=== PATIENT | female | born 1985 | race Two or more races ===

== ENCOUNTER → 2016-11-13 | Outpatient (CLI) | payer OTHER ==
[2016-11-13 12:13] LABS: CH 32.6; CHCM 34.3; HDW 2.92; HGB 11.4 gm/dL (11.4-16.0); MCHC 33.4 g/dL (31.0-37.0); MCV 95.8 fL (80.0-100.0); Mean Platelet Volume 8.8; RBC 3.55 m/uL (3.80-5.40); RDW 14.3 % (11.5-15.5); WBC 5.4 k/uL (3.8-10.6)
[2016-11-13 12:47] LABS: Non-African American GFR(MDRD) >60 (>60 ml/min/1.73 sqM)
[2016-11-13 13:35] LABS: Hepatitis B Surface Ag Index 0.05
[2016-11-13 15:38] LABS: Treponemal Ab Non-Reactive (Non-Reactive)
[2016-11-14 10:12] LABS: HIV-1/HIV-2 Ab Screen NONREAC (NON REAC)
== END | disposition home or self-care (01) ==
LOC: LABWHC1 10:47
PROVIDERS: ATTEND Obstetrics & Gynecology
DX: Z34.82 Encounter for supervision of other normal pregnancy, second trimester (principal); Z3A.00 Weeks of gestation of pregnancy not specified
CPT/HCPCS: 36415; 82565; 82950; 85027; 86762; 86777; 86778; 86780; 86850; 86870; 86880; 86886; 86900; 86901; 87340; 87389

== ENCOUNTER → 2016-12-17 | Outpatient (CLI) | payer OTHER | END | disposition home or self-care (01) | LOC: LABWHC1 15:36 | PROVIDERS: ATTEND Obstetrics & Gynecology | DX: Z34.93 Encounter for supervision of normal pregnancy, unspecified, third trimester (principal); Z3A.00 Weeks of gestation of pregnancy not specified | CPT/HCPCS: 86850 ==

== ENCOUNTER → 2017-01-23 | Outpatient (CLI) | payer OTHER ==
--- NOTE | 2017-01-23 11:45 | US ---
EXAMINATION TYPE: US OB anatomy transabd third trimester DATE OF EXAM: 01/23/2017 10:03 AM COMPARISON: NONE HISTORY: LGA TECHNIQUE: Transabdominal (TA) EXAM MEASUREMENTS: GESTATIONAL AGE / DATING Physician Established: (34 weeks/2 days) EDC: 03/04/17 Dates by LMP: not known Dates by First Scan: not available Dates by Current Scan for: (34 weeks/4 days) EDC: 03/02/17 SURVEY IUP: Single PLACENTA: Posterior/fundal PREVIA: No previa TIFFANIE: 12.0 cm Normal CERVICAL LENGTH (transabdominal: norm > 3.0cm): 3.3 cm BIOMETRY PRESENTATION: Vertex BPD: 8.6 cm 34 weeks / 5 days HC: 31.2 cm 35 weeks / 2 days AC: 30.4 cm 34 weeks / 2 days FL: 6.6 cm 33 weeks / 6 days ESTIMATED WEIGHT IN GRAMS: 2405 grams ESTIMATED WEIGHT IN LBS/OZS: 5 lbs. 5 oz. WEIGHT PERCENTAGE BASED ON ESTABLISHED DATE: 45 % HC/AC: 1.0 FL/AC: 21.7 HEART RATE: 129 bpm ANATOMY SEEN (within normal limits): Stomach Situs Nose / Lips Diaphragm Kidneys (bilateral) Bladder Cord Insert Three Vessel Cord Longitudinal Spine Transverse Spine *) Midline Falx Cavus Septi Pellucidi ANATOMY NOT SEEN: Lateral Vent (< 1 cm) cm * Cisterna Magna (< 1.1 cm) cm * Nuchal Fold (< 0.6 cm) cm * Cerebellum (varies with age) cm Choroid Plexus (bilateral Four Chamber Heart Outflow tracts: LVOT/RVOT Arms (bilateral) Legs (bilateral) Single live intrauterine gestation is present. Normal cephalad presentation to fetus is currently see n. There is no ultrasound evidence for placenta previa. Amniotic fluid index is within normal limits. biometry measurements are congruent and felt within normal limits. Detailed anatomical survey i s suboptimal due to advanced age. Majority of structures are suboptimally evaluated as detailed above on still images and during real-time scanning. nose and lips are felt within normal limi ts during real-time scanning less well documented on still images saved. IMPRESSION: As above
== END | disposition home or self-care (01) ==
LOC: RADUSWWP 09:20
PROVIDERS: ATTEND Obstetrics & Gynecology
DX: O36.63X0 Maternal care for excessive fetal growth, third trimester, not applicable or unspecified (principal); Z3A.34 34 weeks gestation of pregnancy
CPT/HCPCS: 76811

== ENCOUNTER 2017-03-06 04:38 | Inpatient (IN) | payer OTHER ==
[2017-03-06] MEDS ORDERED: LIDOCAINE 1% (PF) 10 MG/ML (30 ML SDV) SQ PRN (06:01)
[2017-03-06] MEDS ORDERED: CARBOPROST TROMETHAMINE 250 MCG/ML 1 ML AMP IM PRN (06:01)
[2017-03-06] MEDS ORDERED: TERBUTALINE 1 MG/ML VIAL SQ PRN (06:01)
[2017-03-06] MEDS ORDERED: OXYTOCIN 10 UNIT/ML 1 ML VIAL IM PRN (06:01)
[2017-03-06] MEDS ORDERED: METHYLERGONOVINE 0.2 MG/ML 1 ML AMP IM PRN (06:01)
[2017-03-06] MEDS ORDERED: OXYTOCIN 20 UNITS/1000 ML NS 1,000 ML IV SCH ×2 (06:15→11:45)
[2017-03-06 06:20] VITALS: BMI 24.0
[2017-03-06] MEDS: LACTATED RINGERS 1,000 ML IV SCH ×2 (06:30→15:33)
[2017-03-06] MEDS: BUTORPHANOL 1 MG/ML 1 ML VIAL IV PRN ×2 (06:39→10:02)
--- NOTE | 2017-03-06 09:35 | P.HPOB ---
History of Present Illness H&P Date: 03/06/17 Chief Complaint: Labor 31-year-old presents at 41 weeks in labor. Her cervix is 4 centers dilated, 90% effaced, and -1 station. She is adan every 2-4 minutes. heart tones 130-135 with moderate variability and reactive. Review of Systems All systems: negative Constitutional: Denies chills, Denies fever Eyes: denies blurred vision, denies pain Ears, nose, mouth and throat: Denies headache, Denies sore throat Cardiovascular: Denies chest pain, Denies shortness of breath Respiratory: Denies cough Gastrointestinal: Denies abdominal pain, Denies diarrhea, Denies nausea, Denies vomiting Genitourinary: Denies dysuria, Denies hematuria Musculoskeletal: Denies myalgias Integumentary: Denies pruritus, Denies rash Neurological: Denies numbness, Denies weakness Psychiatric: Denies anxiety, Denies depression Endocrine: Denies fatigue, Denies weight change Past Medical History Past Medical History: No Reported History Additional Past Medical History / Comment(s): Obstetric history: She's had 2 previous vaginal deliveries. This is her third and she's had care with me since 18 weeks gestation. Her care is been uncomplicated up to this point. And TIFFANIE done earlier this week showed the fluid to be 12 cm an NST had been reactive. History of Any Multi-Drug Resistant Organisms: None Reported Past Surgical History: No Surgical Hx Reported Past Psychological History: No Psychological Hx Reported Smoking Status: Never smoker - Past Family History Father Family Medical History: No Reported History Medications and Allergies Home Medications Medication Instructions Recorded Confirmed Type Pnv with Ca,No.72/Iron/FA 1 each PO DAILY 03/06/17 03/06/17 History [ Plus Tablet] Allergies Allergy/AdvReac Type Severity Reaction Status Date / Time No Known Allergies Allergy Verified 03/06/17 04:58 Exam Osteopathic Statement: *. No significant issues noted on an osteopathic structural exam other than those noted in the History and Physical/Consult. - Vital Signs Vital signs: Vital Signs Temp Pulse Resp BP 03/06/17 06:10 97.1 F L 80 18 115/70 03/06/17 05:19 96.8 F L 80 19 121/78 Intake and Output 03/05/17 03/06/17 03/06/17 22:59 06:59 14:59 Other: Weight 71.668 kg Heart: Regular rate and rhythm Lungs: Clear to auscultation bilaterally Abdomen: Soft, nontender Extremities: Negative Homans sign Assessment and Plan (1) Normal labor Status: Acute Plan: 1. Expectant management 2. Anticipate normal vaginal delivery
[2017-03-06] MEDS ORDERED: diphenhydrAMINE 50 MG/ML 1 ML VIAL IVP PRN ×2 (11:32)
[2017-03-06] MEDS ORDERED: ACETAMINOPHEN TAB 325 MG TAB PO PRN (11:32)
[2017-03-06] MEDS ORDERED: diphenhydrAMINE 25 MG CAP PO PRN (11:32)
[2017-03-06] MEDS ORDERED: BENZOCAINE/MENTHOL SPRAY 1 GM/SPRAY AEROSOL TOPICAL PRN (11:32)
[2017-03-06] MEDS ORDERED: WITCH HAZEL 1 EACH MED..PAD TOPICAL PRN (11:32)
[2017-03-06] MEDS ORDERED: SIMETHICONE 80 MG CHEWABLE PO PRN (11:32)
[2017-03-06] MEDS ORDERED: diphenhydrAMINE 50 MG CAP PO PRN (11:32)
[2017-03-06] MEDS ORDERED: Acetaminophen-Codeine 300-30mg TAB PO PRN (11:32)
[2017-03-06] MEDS ORDERED: HYDROCORTISONE 2.5% RECTAL CREAM 30 GM TUBE RECTAL PRN (11:32)
[2017-03-06] MEDS ORDERED: LANOLIN CREAM 5 GM TUBE TOPICAL PRN (11:32)
[2017-03-06] MEDS ORDERED: ZOLPIDEM 5 MG TAB PO PRN (11:32)
[2017-03-06] MEDS: IBUPROFEN 600 MG TAB PO PRN ×2 (13:40→20:48)
[2017-03-06] MEDS: SENNOSIDES-DOCUSATE SODIUM 1 EACH TAB PO SCH (20:23)
[2017-03-06 20:56] VITALS: RESP 16
[2017-03-07] MEDS: LACTATED RINGERS 1,000 ML IV SCH (01:36)
--- NOTE | 2017-03-07 07:45 | P.PROBDLV ---
Vaginal Delivery Note - . Vaginal Delivery Note: 31-year-old presented at 41 weeks in active labor. Her cervix was 4 cm dilated, 90% effaced, -1 station. She is adan every 2-4 minutes. heart tones 130-135 with moderate variability and reactive. Amniotomy was performed at 9:17 AM and clear fluid noted. At this time she was 5 cm dilated. She progressed to complete by 10:43 AM. Pushed, and delivered a viable male infant over intact perineum at 11:04 AM. Head delivered OA, anterior shoulder which was the left shoulder was delivered with gentle downward traction followed by posterior shoulder and rest of body. Nose and mouth bulb suctioned , cord clamped and cut, placed mother's abdomen. Apgars 9, 9, weight 7 lbs. 9 oz. Placenta delivered spontaneously, intact with three-vessel cord at 11:06 AM. Vagina, cervix, and perineum were inspected. No lacerations noted. Estimated blood loss 150 mL. Mother and baby in stable condition.
--- NOTE | 2017-03-07 07:46 | P.PNOBGVD ---
Subjective - Subjective Principal diagnosis: Status post total vaginal delivery post day #1 Interval history: Seen and examined. Denies nausea, vomiting, chest pain, shortness of breath or calf pain. Patient reports: Reports appetite normal, Reports voiding normally, Reports pain well controlled, Reports ambulating normally : doing well Objective - Latest Vital Signs Latest vital signs: Vital Signs Temp Pulse Resp BP 03/07/17 00:00 98.2 F 77 16 107/61 03/06/17 20:00 98.6 F 69 16 101/59 03/06/17 15:38 97.8 F 61 18 117/73 03/06/17 13:15 74 18 100/59 03/06/17 12:45 98.1 F 71 18 106/63 03/06/17 12:15 71 18 113/63 03/06/17 12:00 71 18 116/55 03/06/17 11:45 75 18 100/51 03/06/17 11:30 75 18 119/67 03/06/17 11:15 67 18 110/62 Intake and Output 03/06/17 03/07/17 03/07/17 22:59 06:59 14:59 Other: # Voids 1 - Exam Lungs: bilateral: normal Chest: Normal S1, Normal S2 Extremities: Present: normal Abdomen: Present: normal appearance, soft Uterus: Present: normal, firm Assessment and Plan (1) Normal labor Current Visit: Yes Status: Resolved Code(s): O80 - ENCOUNTER FOR FULL-TERM UNCOMPLICATED DELIVERY; Z37.9 - OUTCOME OF DELIVERY, UNSPECIFIED SNOMED Code(s ): 55036702 (2) Normal vaginal delivery Narrative/Plan: 1. Continue care Current Visit: Yes Status: Acute Code(s): O80 - ENCOUNTER FOR FULL-TERM UNCOMPLICATED DELIVERY SNOMED Code(s): 66092786
[2017-03-07 08:46] VITALS: BP 104/65; PULSE 91; TEMP 99
[2017-03-07] MEDS: SENNOSIDES-DOCUSATE SODIUM 1 EACH TAB PO SCH (08:50)
--- NOTE | 2017-03-07 12:47 | P.DS ---
Providers Date of admission: 03/06/17 05:52 Expected date of discharge: 03/07/17 Attending physician: Francia Buenrostro Primary care physician: Vianey Cuellar - Discharge Diagnosis(es) (1) Normal labor Current Visit: Yes Status: Resolved (2) Normal vaginal delivery Current Visit: Yes Status: Acute Hospital Course: PAtient presented in active labor. She underwent a normal vaginal delivery. Her pp course is uncomplicated. Denies N/V, F/C, CP, SOB, calf pain. She will be discharged home PPD #1 in stable condition to follow up with me in 6 weeks. Plan - Discharge Summary Discharge Medication List Pnv with Ca,No.72/Iron/FA [ Plus Tablet] 1 tab PO DAILY 03/06/17 [ History] Follow up Appointment(s)/Referral(s): Francia Buenrostro DO [Doctor of Osteopathic Medicine] - 6 Weeks Discharge Disposition: HOME SELF-CARE
[2017-03-07] MEDS: IBUPROFEN 600 MG TAB PO PRN (14:52)
== END 2017-03-07 15:30 | disposition home or self-care (01) | DRG 775 ==
LOC: FBPOP 04:38 → 4FBP 05:52
PROVIDERS: ADMIT Obstetrics & Gynecology; ATTEND Obstetrics & Gynecology
PROC: 10E0XZZ Delivery of Products of Conception, External Approach (ICD-10-PCS; principal; 2017-03-06)
PROC: 10907ZC Drainage of Amniotic Fluid, Therapeutic from Products of Conception, Via Natural or Artificial Opening (ICD-10-PCS; 2017-03-06)
DX: O80 Encounter for full-term uncomplicated delivery (principal); Z37.0 Single live birth; Z3A.41 41 weeks gestation of pregnancy
CPT/HCPCS: 59025; 88307; 99213

== ENCOUNTER 2017-04-08 02:06 | Emergency (ER) | payer OTHER ==
[2017-04-08 02:15] VITALS: RESP 16
[2017-04-08] MEDS ORDERED: RX INFO: IV CONTRAST WAS GIVEN 1 EACH MISC MISCELLANE PRN (02:31)
[2017-04-08] MEDS ORDERED: ONDANSETRON 4 MG/2 ML VIAL IVP STA (02:31)
[2017-04-08] MEDS ORDERED: DICYCLOMINE 10 MG/ML 2 ML AMP IM STA (02:31)
[2017-04-08 03:32] LABS: ALT 34 U/L (9-52); AST 34 U/L (14-36); Alkaline Phosphatase 73 U/L (38-126); Amylase 70 U/L (30-110); Anion Gap 11 mmol/L; Appearance,Urine Clear (Clear); Bacteria,Urine Rare /hpf; Bilirubin,Urine Negative (Negative); Blood Urea Nitrogen 10 mg/dL (7-17); Calcium 9.5 mg/dL (8.4-10.2); Carbon Dioxide 27 mmol/L (22-30); Chloride 105 mmol/L (98-107); Glucose 92 mg/dL (74-99); Glucose,Urine (UA) Negative (Negative); Ketones,Urine Negative (Negative); Leukocyte Esterase,Urine Small (Negative); Nitrite,Urine Negative (Negative); Non-African American GFR(MDRD) >60 (>60 ml/min/1.73 sqM); PH, Urine 5.5 (5.0-8.0); Particle Count 528; Potassium 4.4 mmol/L (3.5-5.1); Protein,Urine Negative (Negative); RBC,Urine <1 /hpf (0-5); Sodium 143 mmol/L (137-145); Specific Gravity,Urine 1.002 (1.001-1.035); Squamous Epithelial Cell,Urine 1 /hpf (0-4); Total Bilirubin 0.3 mg/dL (0.2-1.3); Total Protein 7.5 g/dL (6.3-8.2); UA Billing (MACRO vs. MICRO) MICRO; Urobilinogen,Urine <2.0 mg/dL (<2.0); WBC,Urine 2 /hpf (0-5)
[2017-04-08 03:37] LABS: Basophils % (A) 1 %; CH 32.5; Eosinophils # (A) 0.1 k/uL (0-0.7); Eosinophils % (A) 2 %; HCT 37.2 % (34.0-46.0); HDW 2.97; HGB 13.2 gm/dL (11.4-16.0); Luc # (Auto) 0.17; Luc % (Auto) 4; Lymphocytes # (A) 1.2 k/uL (1.0-4.8); Lymphocytes % (A) 33 %; MCH 32.1 pg (25.0-35.0); MCHC 35.4 g/dL (31.0-37.0); MCV 90.7 fL (80.0-100.0); Mean Platelet Volume 7.5; Monocytes # (A) 0.2 k/uL (0-1.0); Monocytes % (A) 4 %; Neutrophils # (A) 2.1 k/uL (1.3-7.7); Neutrophils % (A) 57 %; RDW 12.3 % (11.5-15.5); WBC 3.8 k/uL (3.8-10.6); WBC (Perox) 3.81
--- NOTE | 2017-04-08 03:37 | ED ---
Abdominal Pain HPI - General Chief Complaint: Abdominal Pain Stated Complaint: Abdominal Pain Time Seen by Provider: 04/08/17 02:19 Source: patient, RN notes reviewed Mode of arrival: ambulatory Limitations: no limitations - History of Present Illness Initial Comments: 31-year-old female presents to the emergency department with a chief complaint of right upper quadrant. Bowel pain. Patient had a vaginal delivery of a child one month ago. Patient states she's having this pain in the right upper quadrant. Patient states the pain comes and goes. Patient states the pain is moderate. Patient states that nothing seems to make it better or worse. Patient denies any nausea vomiting this. They were concerned due to the patient 's pains without that they should be seen. Patient also does suffer from chronic neck pain that has been getting worse over the last month or so. She states is most likely due to carrying the baby in looking at the baby, but she wanted to make sure that her neck was okay as well. Patient states that she is not currently having any other symptoms at this time. Patient denies any recent fever, chills, shortness of breath, chest pain, back pain, nausea vomiting, numbness or tingling, dysuria or hematuria, constipation or diarrhea, headaches or visual changes, or any other current symptoms. - Related Data Home Medications Medication Instructions Recorded Confirmed Pnv,Calcium 72/Iron/Folic Acid 1 tab PO DAILY 03/06/17 03/06/17 [ Plus Tablet] Allergies Allergy/AdvReac Type Severity Reaction Status Date / Time No Known Allergies Allergy Verified 04/08/17 02:15 Review of Systems ROS Statement: Those systems with pertinent positive or pertinent negative responses have been documented in the HPI. ROS Other: All systems not noted in ROS Statement are negative. Past Medical History Past Medical History: No Reported History Additional Past Medical History / Comment(s): She's had 3 previous vaginal deliveries History of Any Multi-Drug Resistant Organisms: None Reported Past Surgical History: No Surgical Hx Reported Past Psychological History: No Psychological Hx Reported Smoking Status: Never smoker Past Alcohol Use History: None Reported Past Drug Use History: None Reported - Past Family History Father Family Medical History: No Reported History General Exam - General Exam Comments Initial Comments: General: The patient is awake and alert, in no distress, and does not appear acutely ill. Eye: Pupils are equal, round and reactive to light, extra-ocular movements are intact; there is normal conjunctiva bilaterally. No signs of icterus. Ears, nose, mouth and throat: There are moist mucous membranes and no oral lesions. Neck: The neck is supple, there is no tenderness. Cardiovascular: There is a regular rate and rhythm. No murmur, rub or gallop is appreciated. Respiratory: Lungs are clear to auscultation, respirations are non-labored, breath sounds are equal. No wheezes, stridor, rales, or rhonchi. Gastrointestinal: Soft, non-distended, non-tender abdomen without masses or organomegaly noted. There is no rebound or guarding present. No CVA tenderness. Bowel sounds are unremarkable. Back: There is no tenderness to palpation in the midline. There is no obvious deformity. No rashes noted. Musculoskeletal: Normal ROM, no tenderness, There is no pedal edema. There is no calf tenderness or swelling. Sensation intact. Pulses equal bilaterally 2+. Neurological: CN II-XII intact, There are no obvious motor or sensory deficits. Coordination appears grossly intact. Speech is normal. Skin: Skin is warm and dry and no rashes or lesions are noted. Psychiatric: Cooperative, appropriate mood & affect, normal judgment. Limitations: no limitations Course Vital Signs 04/08/17 02:10 Temperature 99.0 F Pulse Rate 82 Respiratory 16 Rate Blood Pressure 131/81 O2 Sat by Pulse 99 Oximetry Medical Decision Making - Medical Decision Making 31-year-old female presents emergency Department chief complaint of right upper quadrant abdominal pain. At this time patient's CAT scan is reviewed that is showing a colitis. At this time we discussed that she should take Tylenol for her pain. We discussed follow-up to GI. We discussed that her stool cultures will help us follow up on any bacterial infection in that we can follow-up on the results and she should call us. We discussed return parameters all patient' s questions. She stated that she understood. She is feeling much better. This time she'll just discharged home. - Lab Data Result diagrams: 04/08/17 03:00 04/08/17 03:00 Lab Results 04/08/17 04/08/17 04/08/17 Range/Units 03:00 03:00 03:00 WBC 3.8 (3.8-10.6) k/uL RBC 4.10 (3.80-5.40) m/uL Hgb 13.2 (11.4-16.0) gm/dL Hct 37.2 (34.0-46.0) % MCV 90.7 (80.0-100.0) fL MCH 32.1 (25.0-35.0) pg MCHC 35.4 (31.0-37.0) g/dL RDW 12.3 (11.5-15.5) % Plt Count 198 (150-450) k/uL Neutrophils % 57 % Lymphocytes % 33 % Monocytes % 4 % Eosinophils % 2 % Basophils % 1 % Neutrophils # 2.1 (1.3-7.7) k/uL Lymphocytes # 1.2 (1.0-4.8) k/uL Monocytes # 0.2 (0-1.0) k/uL Eosinophils # 0.1 (0-0.7) k/uL Basophils # 0.0 (0-0.2) k/uL Sodium 143 (137-145) mmol/L Potassium 4.4 (3.5-5.1) mmol/L Chloride 105 (98-107) mmol/L Carbon Dioxide 27 (22-30) mmol/L Anion Gap 11 mmol/L BUN 10 (7-17) mg/dL Creatinine 0.70 (0.52-1.04) mg/dL Est GFR (MDRD) Af Amer >60 (>60 ml/min/1.73 sqM) Est GFR (MDRD) Non-Af >60 (>60 ml/min/1.73 sqM) Glucose 92 (74-99) mg/dL Calcium 9.5 (8.4-10.2) mg/dL Total Bilirubin 0.3 (0.2-1.3) mg/dL AST 34 (14-36) U/L ALT 34 (9-52) U/L Alkaline Phosphatase 73 (38-126) U/L Total Protein 7.5 (6.3-8.2) g/dL Albumin 4.3 (3.5-5.0) g/dL Amylase 70 (30-110) U/L Lipase 123 (23-300) U/L HCG, Quant <2.4 mIU/mL Urine Color Colorless Urine Appearance Clear (Clear) Urine pH 5.5 (5.0-8.0) Ur Specific Lucas 1.002 (1.001-1.035) Urine Protein Negative (Negative) Urine Glucose (UA) Negative (Negative) Urine Ketones Negative (Negative) Urine Blood Small H (Negative) Urine Nitrite Negative (Negative) Urine Bilirubin Negative (Negative) Urine Urobilinogen <2.0 (<2.0) mg/dL Ur Leukocyte Esterase Small H (Negative) Urine RBC <1 (0-5) /hpf Urine WBC 2 (0-5) /hpf Ur Squamous Epith Cells 1 (0-4) /hpf Urine Bacteria Rare H (None) /hpf - Radiology Data Radiology results: report reviewed, image reviewed Disposition Clinical Impression: Colitis Disposition: HOME SELF-CARE Condition: Stable Instructions: Colitis (ED) Additional Instructions: Please use medication as discussed. Please follow up with family doctor if symptoms have not improved over the next two days. Please return to the emergency room if your symptoms increase or worsen or for any other concerns. Referrals: Mandy Nichols MD [STAFF PHYSICIAN] - 1-2 days Thang Cadena MD [STAFF PHYSICIAN] - 1-2 days Time of Disposition: 03:56
--- NOTE | 2017-04-08 03:45 | CT ---
EXAM: CT Abdomen and Pelvis With Intravenous Contrast CLINICAL HISTORY: Reason: Pain TECHNIQUE: Axial computed tomography images of the abdomen and pelvis with intravenous contrast. Coronal and sagittal reformats were obtained. CTDI is 6.40 MGy and DLP is 476.50 MGy-cm. This CT exam was performed using one or more of the following dose reduction techniques: automated exposure control, adjustment of the mA and/or kV according to patient size, and/or use of iterative reconstruction technique. COMPARISON: No relevant prior studies available. FINDINGS: Lower thorax: No acute findings. ABDOMEN: Liver: Unremarkable. No mass. Gallbladder and bile ducts: Unremarkable. No calcified stones. No ductal dilation. Pancreas: Unremarkable. No mass. No ductal dilation. Spleen: Unremarkable. No splenomegaly. Adrenals: Unremarkable. No mass. Kidneys and ureters: Unremarkable. No solid mass. No hydronephrosis. Stomach and bowel: Colonic wall thickening extending from the cecum to the proximal transverse colon with mild adjacent inflammatory change. Appendix: No findings to suggest acute appendicitis. PELVIS: Bladder: Unremarkable. No mass. Reproductive: Unremarkable as visualized. ABDOMEN and PELVIS: Intraperitoneal space: Small amount of free fluid in the pelvis, likely physiologic. Bones/joints: No acute fracture. No dislocation. Soft tissues: Unremarkable. Vasculature: Unremarkable. No abdominal aortic aneurysm. Lymph nodes: Unremarkable. No enlarged lymph nodes. IMPRESSION: 1. Colonic wall thickening extending from the cecum to the proximal transverse colon, compatible with colitis, likely infectious or inflammatory. 2. Small amount of free fluid in the pelvis, likely physiologic.
--- NOTE | 2017-04-08 03:48 | XR ---
EXAM: XR Cervical Spine, 4 or 5 Views CLINICAL HISTORY: Reason: Pain TECHNIQUE: Frontal, odontoid, lateral and oblique views of the cervical spine. COMPARISON: No relevant prior studies available. FINDINGS: Vertebrae: Dens is obscured by overlying structures on odontoid view. Otherwise, no evidence of acute fracture. Normal alignment. Disc spaces: No acute findings. No significant narrowing. Soft tissues: Unremarkable. IMPRESSION: No acute osseous abnormality of the cervical spine.
[2017-04-08 03:49] LABS: HCG,Quantitative Serum <2.4 mIU/mL
[2017-04-08 04:57] VITALS: BP 110/70; PULSE 68; TEMP 97.6
== END 2017-04-08 05:06 | disposition home or self-care (01) ==
LOC: EC 02:06
DX: K52.9 Noninfective gastroenteritis and colitis, unspecified (principal); M54.2 Cervicalgia; G89.29 Other chronic pain; Z79.899 Other long term (current) drug therapy
CPT/HCPCS: 36415; 80053; 82150; 83690; 85025; 81001; 84702; 87086; 72050; 74177; 99284; 96374; 96372; J0500; J2405; Q9967

== ENCOUNTER → 2017-04-09 | Outpatient (CLI) | payer OTHER | END | disposition home or self-care (01) | LOC: LABMAIN 05:27 | PROVIDERS: ATTEND Emergency Medicine | DX: K52.9 Noninfective gastroenteritis and colitis, unspecified (principal) | CPT/HCPCS: 87045; 87046; 89055 ==

== ENCOUNTER → 2017-05-09 | Outpatient (CLI) | payer OTHER ==
[2017-05-09 15:56] LABS: Basophils % (A) 0 %; CH 31.5; CHCM 35.3; Eosinophils # (A) 0.1 k/uL (0-0.7); Eosinophils % (A) 2 %; HCT 36.4 % (34.0-46.0); HDW 2.96; HGB 12.9 gm/dL (11.4-16.0); Luc # (Auto) 0.11; Luc % (Auto) 3; Lymphocytes # (A) 1.6 k/uL (1.0-4.8); Lymphocytes % (A) 39 %; MCH 31.8 pg (25.0-35.0); MCHC 35.5 g/dL (31.0-37.0); MCV 89.6 fL (80.0-100.0); Mean Platelet Volume 7.6; Monocytes # (A) 0.2 k/uL (0-1.0); Monocytes % (A) 5 %; Neutrophils # (A) 2.1 k/uL (1.3-7.7); Neutrophils % (A) 51 %; RBC 4.07 m/uL (3.80-5.40); RDW 13.5 % (11.5-15.5); WBC 4.1 k/uL (3.8-10.6); WBC (Perox) 3.94
[2017-05-09 16:03] LABS: ALT 36 U/L (9-52); AST 25 U/L (14-36); Alkaline Phosphatase 71 U/L (38-126); Anion Gap 13 mmol/L; Blood Urea Nitrogen 11 mg/dL (7-17); C Reactive Protein 5.5 mg/L (<10.0); Calcium 9.5 mg/dL (8.4-10.2); Carbon Dioxide 26 mmol/L (22-30); Chloride 105 mmol/L (98-107); Cholesterol 200 mg/dL (<200); Creatine Kinase 55 U/L (30-135); Glucose 83 mg/dL (74-99); HDL Cholesterol 47 mg/dL (40-60); Iron 113 ug/dL (37-170); Magnesium 1.8 mg/dL (1.6-2.3); Non-African American GFR(MDRD) >60 (>60 ml/min/1.73 sqM); Potassium 4.6 mmol/L (3.5-5.1); Sodium 144 mmol/L (137-145); Total Bilirubin 0.4 mg/dL (0.2-1.3); Total Protein 7.6 g/dL (6.3-8.2); Triglycerides 86 mg/dL (<150)
[2017-05-09 16:10] LABS: Total Iron Binding Capacity 290 ug/dL (265-497)
[2017-05-09 18:34] LABS: Erythrocyte Sedimentation Rate 20 mm/hr (0-20)
[2017-05-10 14:42] LABS: Hemoglobin A1C 4.9 % (4.2-6.1)
== END | disposition home or self-care (01) ==
LOC: LABWHC1 15:00
PROVIDERS: ATTEND Internal Medicine
DX: Z00.00 Encounter for general adult medical examination without abnormal findings (principal); D64.9 Anemia, unspecified; I95.9 Hypotension, unspecified; R42 Dizziness and giddiness; E78.5 Hyperlipidemia, unspecified; E55.9 Vitamin D deficiency, unspecified
CPT/HCPCS: 36415; 80053; 80061; 82272; 82306; 82550; 82728; 83036; 83540; 83550; 83735; 84439; 84443; 84550; 85025; 85652; 86140; 87338

== ENCOUNTER 2018-02-05 01:21 | Emergency (ER) | payer OTHER ==
[2018-02-05] MEDS ORDERED: IBUPROFEN ORAL SUSP 100 MG/5 ML CUP PO ONE (02:20)
[2018-02-05] MEDS ORDERED: ACETAMINOPHEN TAB 500 MG TAB PO STA (02:20)
[2018-02-05] MEDS ORDERED: IBUPROFEN 600 MG TAB PO STA (02:24)
--- NOTE | 2018-02-05 03:15 | ED ---
URI HPI - General Chief Complaint: Upper Respiratory Infection Stated Complaint: Fever Time Seen by Provider: 02/05/18 01:58 Source: patient, RN notes reviewed Mode of arrival: ambulatory Limitations: no limitations - History of Present Illness Initial Comments: This is a 32-year-old female who presents to the emergency department with chief complaint of fever. Patient complains of a multitude of symptoms. She complains of body aches, fever, headache, sore throat, chills, right upper quadrant abdominal pain and nausea as well as difficulty with urination. She states that she has been experiencing some dysuria. Patient states that the symptoms have been present for the last 2 days. Denies chest pain or shortness of breath, diarrhea or constipation. - Related Data Previous Rx's Medication Instructions Recorded Sulfamethox-Tmp 800-160Mg [Bactrim 1 tab PO Q12HR #20 tab 02/05/18 DS 800-160 mg] Allergies Allergy/AdvReac Type Severity Reaction Status Date / Time No Known Allergies Allergy Verified 02/05/18 01:40 Review of Systems ROS Statement: Those systems with pertinent positive or pertinent negative responses have been documented in the HPI. ROS Other: All systems not noted in ROS Statement are negative. Past Medical History Past Medical History: No Reported History Additional Past Medical History / Comment(s): She's had 3 previous vaginal deliveries, History of Any Multi-Drug Resistant Organisms: None Reported Past Surgical History: No Surgical Hx Reported Past Psychological History: No Psychological Hx Reported Smoking Status: Never smoker Past Alcohol Use History: None Reported Past Drug Use History: None Reported - Past Family History Father Family Medical History: No Reported History General Exam - General Exam Comments Initial Comments: General: Awake and alert, well-developed; in no apparent distress. HEENT: Head atraumatic, normocephalic. Pupils are equal, round and reactive to light. Extraocular movements intact. Oropharynx moist with mild erythema. No exudates. Neck: Supple. Normal ROM. No tender adenopathy. Cardiovascular: Regular rate and rhythm. No murmurs, rubs or gallops. Chest symmetrical. Respiratory: Lungs clear to auscultation bilaterally. No wheezes, rales or rhonchi. Normal respiratory effort with no use of accessory muscles. Abdomen: Soft, non-distended. Mild tenderness on palpation of right upper quadrant. No rigidity, rebound or guarding. Normal bowel sounds in all 4 quadrants. Musculoskeletal: Normal ROM, no tenderness bilateral upper and lower extremities. Ambulating normally. Skin: Bellamy, warm and dry without rashes or lesions. Neurological: Alert and oriented x3. CN II-XII grossly intact. Speech is fluent and answers are appropriate. No focal neuro deficits. Psychiatric: Normal mood and affect. No overt signs of depression or anxiety noted. Limitations: no limitations (Initial vital signs: Temperature 104.6, pulse 120, respirations 18, blood pressure 126/66, 99% on room air.) Course Vital Signs 02/05/18 02/05/18 02/05/18 02:22 04:11 04:41 Temperature 104.6 F H 100.5 F H 100.1 F H Pulse Rate 120 H 110 H Respiratory 18 18 Rate Blood Pressure 126/66 134/83 O2 Sat by Pulse 99 98 Oximetry Medical Decision Making - Medical Decision Making This is a 32-year-old female who presented to the emergency department with chief complaint of fever. Patient had a multitude of symptoms for the last 2 days. She complained of bodyaches, headache, sore throat, chills, abdominal pain, difficulty urinating and nausea. Several attempts were made for patient to supply a urine sample, however she was unable to. Patient's fever was treated. Vital signs are stable and patient is in no acute distress. She states that she feels much better after the fever has come down. CBC and CMP were unremarkable. Influenza and strep were negative. Patient will be discharged home at this time. She states that she has difficulty urinating and burning when she urinates. She will be prescribed Bactrim to empirically treat UTI as patient did not supply a urine sample after several attempts were made. Patient is in agreement and voices understanding. All questions answered. - Lab Data Result diagrams: 02/05/18 03:14 02/05/18 03:14 Lab Results 02/05/18 02/05/18 02/05/18 Range/Units 03:00 03:00 03:14 WBC (3.8-10.6) k/uL RBC (3.80-5.40) m/uL Hgb (11.4-16.0) gm/dL Hct (34.0-46.0) % MCV (80.0-100.0) fL MCH (25.0-35.0) pg MCHC (31.0-37.0) g/dL RDW (11.5-15.5) % Plt Count (150-450) k/uL Neutrophils % % Lymphocytes % % Monocytes % % Eosinophils % % Basophils % % Neutrophils # (1.3-7.7) k/uL Lymphocytes # (1.0-4.8) k/uL Monocytes # (0-1.0) k/uL Eosinophils # (0-0.7) k/uL Basophils # (0-0.2) k/uL Sodium 139 (137-145) mmol/L Potassium 4.3 (3.5-5.1) mmol/L Chloride 100 (98-107) mmol/L Carbon Dioxide 22 (22-30) mmol/L Anion Gap 17 mmol/L BUN 12 (7-17) mg/dL Creatinine 0.70 (0.52-1.04) mg/dL Est GFR (CKD-EPI)AfAm >90 (>60 ml/min/1.73 sqM) Est GFR (CKD-EPI)NonAf >90 (>60 ml/min/1.73 sqM) Glucose 116 H (74-99) mg/dL Calcium 9.7 (8.4-10.2) mg/dL Total Bilirubin 0.5 (0.2-1.3) mg/dL AST 20 (14-36) U/L ALT 15 (9-52) U/L Alkaline Phosphatase 70 (38-126) U/L Total Protein 8.3 H (6.3-8.2) g/dL Albumin 4.5 (3.5-5.0) g/dL Amylase 81 (30-110) U/L Lipase 146 (23-300) U/L Influenza Type A RNA Not Detected (Not Detectd) Influenza Type B (PCR) Not Detected (Not Detectd) Group A Strep Rapid Negative (Negative) 02/05/18 Range/Units 03:14 WBC 8.2 (3.8-10.6) k/uL RBC 4.46 (3.80-5.40) m/uL Hgb 13.2 (11.4-16.0) gm/dL Hct 38.8 (34.0-46.0) % MCV 87.0 (80.0-100.0) fL MCH 29.6 (25.0-35.0) pg MCHC 34.0 (31.0-37.0) g/dL RDW 13.6 (11.5-15.5) % Plt Count 196 (150-450) k/uL Neutrophils % 83 % Lymphocytes % 10 % Monocytes % 4 % Eosinophils % 2 % Basophils % 0 % Neutrophils # 6.8 (1.3-7.7) k/uL Lymphocytes # 0.8 L (1.0-4.8) k/uL Monocytes # 0.3 (0-1.0) k/uL Eosinophils # 0.2 (0-0.7) k/uL Basophils # 0.0 (0-0.2) k/uL Sodium (137-145) mmol/L Potassium (3.5-5.1) mmol/L Chloride (98-107) mmol/L Carbon Dioxide (22-30) mmol/L Anion Gap mmol/L BUN (7-17) mg/dL Creatinine (0.52-1.04) mg/dL Est GFR (CKD-EPI)AfAm (>60 ml/min/1.73 sqM) Est GFR (CKD-EPI)NonAf (>60 ml/min/1.73 sqM) Glucose (74-99) mg/dL Calcium (8.4-10.2) mg/dL Total Bilirubin (0.2-1.3) mg/dL AST (14-36) U/L ALT (9-52) U/L Alkaline Phosphatase (38-126) U/L Total Protein (6.3-8.2) g/dL Albumin (3.5-5.0) g/dL Amylase (30-110) U/L Lipase (23-300) U/L Influenza Type A RNA (Not Detectd) Influenza Type B (PCR) (Not Detectd) Group A Strep Rapid (Negative) Disposition Clinical Impression: Dysuria, Fever Disposition: HOME SELF-CARE Condition: Good Instructions: Dysuria (ED), Fever in Adults (ED) Additional Instructions: Please take medications as prescribed. Please follow up with primary care provider within 1-2 days. Return to emergency department if symptoms should worsen or any concerns arise. Prescriptions: Sulfamethox-Tmp 800-160Mg [Bactrim DS 800-160 mg] 1 tab PO Q12HR #20 tab Referrals: Terrell Duarte MD [Primary Care Provider] - 1-2 days Time of Disposition: 05:15
[2018-02-05 03:25] LABS: Basophils % (A) 0 %; Eosinophils # (A) 0.2 k/uL (0-0.7); Eosinophils % (A) 2 %; HCT 38.8 % (34.0-46.0); HGB 13.2 gm/dL (11.4-16.0); Lymphocytes # (A) 0.8 k/uL (1.0-4.8); Lymphocytes % (A) 10 %; MCH 29.6 pg (25.0-35.0); Mean Platelet Volume 8.3; Monocytes # (A) 0.3 k/uL (0-1.0); Monocytes % (A) 4 %; Neutrophils # (A) 6.8 k/uL (1.3-7.7); Neutrophils % (A) 83 %; Platelet Count 196 k/uL (150-450); RBC 4.46 m/uL (3.80-5.40); RDW 13.6 % (11.5-15.5); WBC 8.2 k/uL (3.8-10.6)
[2018-02-05 03:51] LABS: ALT 15 U/L (9-52); AST 20 U/L (14-36); Albumin 4.5 g/dL (3.5-5.0); Alkaline Phosphatase 70 U/L (38-126); Amylase 81 U/L (30-110); Anion Gap 17 mmol/L; Blood Urea Nitrogen 12 mg/dL (7-17); Calcium 9.7 mg/dL (8.4-10.2); Carbon Dioxide 22 mmol/L (22-30); Chloride 100 mmol/L (98-107); Glucose 116 mg/dL (74-99); Lipase 146 U/L (23-300); Potassium 4.3 mmol/L (3.5-5.1); Sodium 139 mmol/L (137-145); Total Bilirubin 0.5 mg/dL (0.2-1.3); Total Protein 8.3 g/dL (6.3-8.2)
[2018-02-05] MEDS ORDERED: SODIUM CHLORIDE 0.9% 1,000 ML IV STA (03:59)
[2018-02-05 05:34] VITALS: BP 94/64; PULSE 64; RESP 16; TEMP 98.4
== END 2018-02-05 05:39 | disposition home or self-care (01) ==
LOC: EC 01:21
DX: R30.0 Dysuria (principal); R50.9 Fever, unspecified; R51 Headache; R10.11 Right upper quadrant pain; R11.0 Nausea
CPT/HCPCS: 36415; 80053; 82150; 83690; 85025; 87081; 87430; 87502; 99283

== ENCOUNTER → 2018-05-15 | Outpatient (CLI) | payer OTHER ==
--- NOTE | 2018-05-15 14:36 | US ---
EXAMINATION TYPE: Transabdominal DATE OF EXAM: 02/03/18 COMPARISON: NONE CLINICAL HISTORY: Z36 confirm dates. Dates EXAM PERFORMED: Transabdominal (TA) EXAM MEASUREMENTS: GESTATIONAL AGE / DATING Dates by LMP: (12 weeks/2 days) EDC: 11/25/2018 Dates by Current Scan for: (12 weeks/4 days) EDC: 11/23/2018 MATERNAL ANATOMY Uterus: 13.9 x 9.3 x 7.4 cm Right Ovary: 2.4 x 1.7 x 1.2 cm Left Ovary: 3.5 x 2.0 x 1.6 cm Post CDS / Adnexa: no free fluid Presence of free fluid: no Presence of corpus luteal cyst: left hypoechoic lesion = 1.7 x 1.4 x 1.0 cm Presence of subchorionic bleed: no GESTATION / SURVEY CRL: 6.1 (12 weeks/4 days) MSD: Seen, not measured Heart Rate: 164 bpm Rhythm: Normal IUP: IUP Date of LMP: 02/18/2018, Single live IUP measuring 12 weeks 4 days. Right mid intramural hypoechoic lesion seen - 3.9 x 3.0 x 3.8 cm., Likely relating to a fibroid IMPRESSION: 1. Single live intrauterine with a calculated sonographic age of 12 weeks and 4 days and es timated date of delivery of 11/23/2018, concordant with menstrual age. 2. Intramural hypoechoic 3.9 x 3.0 x 3.8 cm anterior uterine lesion thought to represent a leiomyoma.
== END | disposition home or self-care (01) ==
LOC: RADUSWWP 13:34
PROVIDERS: ATTEND Obstetrics & Gynecology
DX: O34.591 Maternal care for other abnormalities of gravid uterus, first trimester (principal); Z3A.12 12 weeks gestation of pregnancy
CPT/HCPCS: 76801

== ENCOUNTER → 2018-08-12 | Outpatient (CLI) | payer OTHER ==
[2018-08-12 13:34] LABS: HCT 31.7 % (34.0-46.0); HGB 10.7 gm/dL (11.4-16.0); MCH 31.8 pg (25.0-35.0); MCHC 33.8 g/dL (31.0-37.0); MCV 94.1 fL (80.0-100.0); Mean Platelet Volume 7.8; Platelet Count 220 k/uL (150-450); RBC 3.37 m/uL (3.80-5.40); WBC 6.4 k/uL (3.8-10.6)
== END | disposition home or self-care (01) ==
LOC: LABWHC1 10:25
PROVIDERS: ATTEND Obstetrics & Gynecology
DX: Z34.82 Encounter for supervision of other normal pregnancy, second trimester (principal); Z3A.00 Weeks of gestation of pregnancy not specified
CPT/HCPCS: 36415; 82950; 85027

== ENCOUNTER 2018-11-21 23:00 | Inpatient (IN) | payer OTHER ==
[2018-11-21] MEDS ORDERED: METHYLERGONOVINE 0.2 MG/ML 1 ML AMP IM PRN (23:21)
[2018-11-21] MEDS ORDERED: LIDOCAINE 0.5% (PF) 5 MG/ML (50 ML SDV) SQ PRN (23:21)
[2018-11-21] MEDS ORDERED: TERBUTALINE 1 MG/ML VIAL SQ PRN (23:21)
[2018-11-21] MEDS ORDERED: CARBOPROST TROMETHAMINE 250 MCG/ML 1 ML AMP IM PRN (23:21)
[2018-11-21] MEDS ORDERED: OXYTOCIN 10 UNIT/ML 1 ML VIAL IM PRN (23:21)
[2018-11-21] MEDS ORDERED: OXYTOCIN 20 UNITS/1000 ML NS 1,000 ML IV SCH (23:30)
[2018-11-21] MEDS: LACTATED RINGERS 1,000 ML IV SCH (23:44)
[2018-11-21 23:56] LABS: Basophils % (A) 0 %; Eosinophils # (A) 0.1 k/uL (0-0.7); Eosinophils % (A) 1 %; HCT 32.4 % (34.0-46.0); HGB 10.9 gm/dL (11.4-16.0); Lymphocytes # (A) 1.6 k/uL (1.0-4.8); Lymphocytes % (A) 18 %; MCH 31.4 pg (25.0-35.0); MCHC 33.6 g/dL (31.0-37.0); MCV 93.4 fL (80.0-100.0); Mean Platelet Volume 8.5; Monocytes # (A) 0.4 k/uL (0-1.0); Monocytes % (A) 5 %; Neutrophils # (A) 6.5 k/uL (1.3-7.7); Neutrophils % (A) 74 %; Platelet Count 230 k/uL (150-450); RBC 3.46 m/uL (3.80-5.40); RDW 13.6 % (11.5-15.5); WBC 8.9 k/uL (3.8-10.6)
[2018-11-22 00:18] VITALS: BMI 26.4
[2018-11-22] MEDS: BUTORPHANOL 1 MG/ML 1 ML VIAL IV PRN ×2 (01:03→02:52)
[2018-11-22] MEDS ORDERED: ACETAMINOPHEN TAB 325 MG TAB PO PRN (03:37)
[2018-11-22] MEDS ORDERED: diphenhydrAMINE 25 MG CAP PO PRN (03:37)
[2018-11-22] MEDS ORDERED: BENZOCAINE/MENTHOL SPRAY 1 GM/SPRAY AEROSOL TOPICAL PRN (03:37)
[2018-11-22] MEDS ORDERED: ZOLPIDEM 5 MG TAB PO PRN (03:37)
[2018-11-22] MEDS ORDERED: SIMETHICONE 80 MG CHEWABLE PO PRN (03:37)
[2018-11-22] MEDS ORDERED: HYDROCORTISONE 2.5% RECTAL CREAM 30 GM TUBE RECTAL PRN (03:37)
[2018-11-22] MEDS ORDERED: diphenhydrAMINE 50 MG CAP PO PRN (03:37)
[2018-11-22] MEDS ORDERED: LANOLIN CREAM 5 GM TUBE TOPICAL PRN (03:37)
[2018-11-22] MEDS ORDERED: diphenhydrAMINE 50 MG/ML 1 ML VIAL IVP PRN ×2 (03:37)
[2018-11-22] MEDS ORDERED: WITCH HAZEL 1 EACH MED..PAD TOPICAL PRN (03:37)
--- NOTE | 2018-11-22 03:41 | P.HPOB ---
History of Present Illness H&P Date: 11/22/18 Chief Complaint: normal labor 32 year old presents at 40 weeks 2 days with SROM at 1930 on 11/21/18. Her cervix was 2/70/-2. she was adan every 10 minutes. heart tones 135- 140 with moderate variability and reactive. Review of Systems All systems: negative Constitutional: Denies chills, Denies fever Eyes: denies blurred vision, denies pain Ears, nose, mouth and throat: Denies headache, Denies sore throat Cardiovascular: Denies chest pain, Denies shortness of breath Respiratory: Denies cough Gastrointestinal: Denies abdominal pain, Denies diarrhea, Denies nausea, Denies vomiting Genitourinary: Denies dysuria, Denies hematuria Musculoskeletal: Denies myalgias Integumentary: Denies pruritus, Denies rash Neurological: Denies numbness, Denies weakness Psychiatric: Denies anxiety, Denies depression Endocrine: Denies fatigue, Denies weight change Past Medical History Past Medical History: No Reported History Additional Past Medical History / Comment(s): OB history: She's had 3 previous vaginal deliveries. This is her fourth and she had care with mi since 10 weeks. O+, abs neg, Rub Imm, RPR NR, HEp B neg, HIV NR. normal 1hr GTT. GBS neg. History of Any Multi-Drug Resistant Organisms: None Reported Past Surgical History: No Surgical Hx Reported Past Anesthesia/Blood Transfusion Reactions: No Reported Reaction Past Psychological History: No Psychological Hx Reported Smoking Status: Never smoker Past Alcohol Use History: None Reported Past Drug Use History: None Reported - Past Family History Father Family Medical History: No Reported History Medications and Allergies Home Medications Medication Instructions Recorded Confirmed Type Pnv No.95/Ferrous Fum/Folic AC 1 each PO DAILY 11/21/18 11/21/18 History [ Multivitamin Tablet] Allergies Allergy/AdvReac Type Severity Reaction Status Date / Time No Known Allergies Allergy Verified 11/21/18 23:18 Exam Osteopathic Statement: *. No significant issues noted on an osteopathic structural exam other than those noted in the History and Physical/Consult. Vital Signs Temp Pulse Resp BP Pulse Ox 11/21/18 23:21 98 F 101 H 16 118/80 98 Intake and Output 11/21/18 11/21/18 11/22/18 14:59 22:59 06:59 Other: Weight 74.389 kg Heart: Regular rate and rhythm Lungs: Clear to auscultation bilaterally Abdomen: Soft, nontender Extremities: Negative Homans sign Results Result Diagrams: 11/21/18 23:45 Abnormal Lab Results - Last 24 Hours (Table) 11/21/18 Range/Units 23:45 RBC 3.46 L (3.80-5.40) m/uL Hgb 10.9 L (11.4-16.0) gm/dL Hct 32.4 L (34.0-46.0) % Assessment and Plan (1) Normal labor Current Visit: No Status: Resolved Code(s): O80 - ENCOUNTER FOR FULL-TERM UNCOMPLICATED DELIVERY; Z37.9 - OUTCOME OF DELIVERY, UNSPECIFIED SNOMED Code(s ): 45108869 Plan: 1. Admit to family place 2. Pitocin augmentation 3. Anticipate normal vaginal delivery
--- NOTE | 2018-11-22 03:42 | P.MSEPDOC ---
Presenting Problems - Arrival Data Date of Arrival on Unit: 11/21/18 Time of Arrival on Unit: 23:31 Mode of Transport: Wheelchair - Complaint OB-Reason for Admission/Chief Complaint: Rule Out SROM Comment: Clear fluid at 1930 Medical History - Information : 4 Para: 3 Term: 3 : 0 Abortions: Spontaneous or Elective: 0 Number of Living Children: 3 - Gestational Age Gestational Age by KELSIE (wks/days): 40 Weeks and 2 Days Review of Systems - Review of Systems Constitutional: No problems Breast: No problems ENT: No problems Cardiovascular: No problems Respiratory: No problems Gastrointestinal: No problems Genitourinary: No problems Musculoskeletal: No problems Neurological: No problems Skin: No problems Vital Signs - Temperature Temperature: 98 F Temperature Source: Temporal Artery Scan - Pulse Right Brachial Pulse Rate: 101 Pulse Assessment Method: Automatic Cuff - Respirations Respiratory Rate: 16 Oxygen Delivery Method: Room Air O2 Sat by Pulse Oximetry: 98 - Blood Pressure Right Arm Blood Pressure: 118/80 Blood Pressure Mean: 92 Blood Pressure Source: Automatic Cuff Medical Screen Scoring (Pre) - Cervical Exam Dilation: 1-3 cm = 1 Effacement: More than 50% = 2 Membranes: Ruptured = 3 - Uterine Contractions Frequency: > 5 minutes apart = 1 Duration: > 40 seconds = 2 Intensity: N/A - Maternal Vital Signs Maternal Temperature: N/A - Pain Assessment Pain Scale Used: Numeric (1 - 10) Pain Intensity: 0 Pain Management Goal: 4 - Assessment Baseline FHR: 135 Heart Rate - NICHD Category: Category I (Normal) = 0 NST: Reactive - Total Score Total Score (Pre): 9 - Level of Risk Level of Risk: Medium (6-9) Physician Notification (Pre) - Physician Notified Physician Notified Date: 11/22/18 Physician Notified Time: 23:21 Spoke With: Porter Nye Order Received: Yes - Notification Comment Comment: Pt srom at 1930, clear fluid. Orders to admit for labor and start pitocin. Disposition - Disposition OB Disposition: Admit, LDRP Suite I agree with the RN Medical Screening Exam: Yes Risk & Benefit of care provided described in d/c instruction: Yes Diagnosis: ENCOUNTER FOR FULL-TERM UNCOMPLICATED DELIVERY
--- NOTE | 2018-11-22 03:43 | P.PROBDLV ---
Vaginal Delivery Note - . Vaginal Delivery Note: 32 year old presents at 40 weeks 2 days with SROM at 1930 on 11/21/18. Her cervix was 2/70/-2. she was adan every 10 minutes. heart tones 135- 140 with moderate variability and reactive. Pitocin augmentation was started. Her cervix was completely dilated at 3:10 AM on 11/22/2018. She pushed, and delivered a viable male infant over intact perineum at 3:24 AM. Head delivered OA, anterior shoulder delivered gentle downward guidance followed by posterior shoulder and rest of body. Nose and mouth bulb suctioned, cord clamped cut, infant handed off to waiting nurses. 8, 9, weight 7 pounds 9.3 ounces. Placenta delivered spontaneously, intact with three-vessel cord at 3:26 AM. Vagina, cervix, and perineum were inspected. No lacerations noted. Estimated blood loss 150 mL. Mother and baby in stable condition.
[2018-11-22] MEDS ORDERED: OXYTOCIN 20 UNITS/1000 ML NS 1,000 ML IV SCH (03:45)
[2018-11-22] MEDS: IBUPROFEN 600 MG TAB PO PRN ×3 (08:15→20:07)
[2018-11-22] MEDS: SENNOSIDES-DOCUSATE SODIUM 1 EACH TAB PO SCH ×2 (12:57→20:01)
[2018-11-22] MEDS: LACTATED RINGERS 1,000 ML IV SCH ×2 (20:00→20:01)
--- NOTE | 2018-11-23 06:32 | P.DS ---
Providers Date of admission: 11/21/18 23:21 Expected date of discharge: 11/24/18 Attending physician: Francia Buenrostro Primary care physician: Stated None - Discharge Diagnosis(es) (1) Normal vaginal delivery Current Visit: No Status: Acute Hospital Course: PT presented in active labor. She underwent normal vaginal delivery. HEr PP course was uncomplicated. She will be discharged home PPD #1 in stable condition to follow up with me in 6 weeks. Plan - Discharge Summary New Discharge Prescriptions: New Ibuprofen [Motrin] 600 mg PO Q6HR PRN #30 tab PRN Reason: Mild Pain Or Fever >= 100.5 No Action Pnv No.95/Ferrous Fum/Folic AC [ Multivitamin Tablet] 1 each PO DAILY Discharge Medication List Pnv No.95/Ferrous Fum/Folic AC [ Multivitamin Tablet] 1 each PO DAILY [History] Ibuprofen [Motrin] 600 mg PO Q6HR PRN #30 tab 11/23/18 [Rx] Follow up Appointment(s)/Referral(s): Francia Buenrostro DO [Doctor of Osteopathic Medicine] - 6 Weeks Discharge Disposition: HOME SELF-CARE
[2018-11-23] MEDS: SENNOSIDES-DOCUSATE SODIUM 1 EACH TAB PO SCH (08:32)
[2018-11-23 08:36] VITALS: PULSE 83; RESP 20; TEMP 97.9
[2018-11-23 08:44] VITALS: BP 104/66
[2018-11-23] MEDS: IBUPROFEN 600 MG TAB PO PRN (13:25)
== END 2018-11-23 15:00 | disposition home or self-care (01) | DRG 807 ==
LOC: FBPOP 23:00 → 4FBP 23:21
PROVIDERS: ADMIT Obstetrics & Gynecology; ATTEND Obstetrics & Gynecology
PROC: 10E0XZZ Delivery of Products of Conception, External Approach (ICD-10-PCS; principal; 2018-11-22)
DX: O80 Encounter for full-term uncomplicated delivery (principal); Z37.0 Single live birth; Z3A.40 40 weeks gestation of pregnancy
CPT/HCPCS: 59025; 84112; 85025; 86850; 86900; 86901; 99213

== ENCOUNTER → 2019-05-31 | Outpatient (CLI) | payer OTHER ==
[2019-05-31 17:46] LABS: Basophils % (A) 1 %; Eosinophils % (A) 1 %; HCT 35.6 % (34.0-46.0); HGB 11.8 gm/dL (11.4-16.0); Lymphocytes # (A) 1.4 k/uL (1.0-4.8); Lymphocytes % (A) 39 %; MCH 30.8 pg (25.0-35.0); MCHC 33.2 g/dL (31.0-37.0); MCV 92.5 fL (80.0-100.0); Mean Platelet Volume 7.9; Monocytes # (A) 0.2 k/uL (0-1.0); Monocytes % (A) 6 %; Neutrophils # (A) 1.7 k/uL (1.3-7.7); Neutrophils % (A) 49 %; Platelet Count 305 k/uL (150-450); RBC 3.84 m/uL (3.80-5.40); RDW 14.5 % (11.5-15.5); WBC 3.5 k/uL (3.8-10.6)
[2019-05-31 19:13] LABS: Erythrocyte Sedimentation Rate 24 mm/hr (0-20)
[2019-06-01 00:40] LABS: ALT 16 U/L (8-44); AST 18 U/L (13-35); African American GFR (CKD) 139.8 (60.0-200.0); Albumin/Globulin Ratio 1.62 (1.60-3.17); Alkaline Phosphatase 63 U/L (41-126); BUN/Creat Ratio 16.67 Ratio (12.00-20.00); C Reactive Protein <0.4 mg/dL (0.0-0.8); Carbon Dioxide 23.4 mmol/L (21.6-31.8); Chloride 107 mmol/L (96-109); Cholesterol 182 mg/dL (0-200); Globulin 2.6 g/dL (1.6-3.3); Glucose 86 mg/dL (70-110); LDL Cholesterol,Calculated 122.8 mg/dL (0.0-131.0); Potassium 4.3 mmol/L (3.5-5.5); Sodium 140 mmol/L (135-145); Total Bilirubin 0.4 mg/dL (0.3-1.2); Total Protein 6.8 g/dL (6.2-8.2)
== END | disposition home or self-care (01) ==
LOC: LABWHC1 16:32
PROVIDERS: ATTEND Internal Medicine
DX: D64.9 Anemia, unspecified (principal); E87.8 Other disorders of electrolyte and fluid balance, not elsewhere classified; E78.5 Hyperlipidemia, unspecified; E55.9 Vitamin D deficiency, unspecified; K21.9 Gastro-esophageal reflux disease without esophagitis
CPT/HCPCS: 36415; 80053; 80061; 82306; 85025; 85652; 86140

== ENCOUNTER → 2019-06-01 | Outpatient (CLI) | payer OTHER | END | disposition home or self-care (01) | LOC: LABWHC1 16:03 | PROVIDERS: ATTEND Internal Medicine | DX: E78.5 Hyperlipidemia, unspecified (principal); D64.9 Anemia, unspecified; E87.8 Other disorders of electrolyte and fluid balance, not elsewhere classified; K21.9 Gastro-esophageal reflux disease without esophagitis; E55.9 Vitamin D deficiency, unspecified | CPT/HCPCS: 87338 ==

== ENCOUNTER → 2020-08-15 | Outpatient (CLI) | payer OTHER ==
--- NOTE | 2020-08-15 13:10 | US ---
EXAMINATION TYPE: US pelvic complete DATE OF EXAM: 08/15/2020 COMPARISON: NONE CLINICAL HISTORY: R10.2 Pelvic pain, D25.9 fibroid uterus. pelvic pain TECHNIQUE: TA. Transabdominal sonographic images of the pelvis were acquired. Date of LMP: 08/15/2020 EXAM MEASUREMENTS: Uterus: 8.9 x 7.6 x 5.7 cm Endometrial Stripe: 1.4 cm Right Ovary: 2.8 x 3.0 x 1.8 cm Left Ovary: 2.6 x 2.2 x 2.5 cm 1. Uterus: Anteverted 4.0cm fundal fibroid seen right side 2. Endometrium: normal for cycle. IUD is well positioned within the endometrium. 3. Right Ovary: wnl 4. Left Ovary: wnl 5. Bilateral Adnexa: wnl 6. Posterior cul-de-sac: wnl IMPRESSION: Leiomyomatous change.
== END | disposition home or self-care (01) ==
LOC: RADUSWWP 12:21
PROVIDERS: ATTEND Obstetrics & Gynecology
DX: D25.9 Leiomyoma of uterus, unspecified (principal)
CPT/HCPCS: 76856

== ENCOUNTER → 2020-11-23 | Outpatient (CLI) | payer OTHER ==
[2020-11-23 14:56] LABS: Basophils % (A) 1 %; Eosinophils # (A) 0.1 k/uL (0-0.7); Eosinophils % (A) 2 %; HCT 29.7 % (34.0-46.0); HGB 9.6 gm/dL (11.4-16.0); Hypochromasia Moderate; Lymphocytes # (A) 1.3 k/uL (1.0-4.8); Lymphocytes % (A) 43 %; MCH 26.7 pg (25.0-35.0); MCHC 32.2 g/dL (31.0-37.0); Mean Platelet Volume 8.2; Monocytes # (A) 0.2 k/uL (0-1.0); Monocytes % (A) 7 %; Neutrophils # (A) 1.3 k/uL (1.3-7.7); Neutrophils % (A) 45 %; Platelet Count 277 k/uL (150-450); RBC 3.58 m/uL (3.80-5.40); RDW 15.1 % (11.5-15.5); WBC 2.9 k/uL (3.8-10.6)
[2020-11-23 15:00] LABS: Appearance,Urine Cloudy (Clear); Bacteria,Urine Rare /hpf; Bilirubin,Urine Negative (Negative); Blood,Urine Large (Negative); Color,Urine Yellow; Glucose,Urine (UA) Negative (Negative); Ketones,Urine Negative (Negative); Leukocyte Esterase,Urine Large (Negative); Mucus,Urine Rare /hpf; Nitrite,Urine Negative (Negative); Protein,Urine Negative (Negative); RBC,Urine 3 /hpf (0-5); Specific Gravity,Urine 1.019 (1.001-1.035); Squamous Epithelial Cell,Urine 3 /hpf (0-4); Urobilinogen,Urine <2.0 mg/dL (<2.0); WBC,Urine 17 /hpf (0-5)
[2020-11-23 15:54] LABS: Erythrocyte Sedimentation Rate 25 mm/hr (0-20)
[2020-11-24 02:51] LABS: Urine Creatinine 147.1 mg/dL
[2020-11-24 04:54] LABS: % Iron Saturation 5.47 (12.00-45.00); ALT 10 U/L (8-44); AST 23 U/L (13-35); African American GFR (CKD) 131.9 (60.0-200.0); Albumin/Globulin Ratio 1.65 (1.60-3.17); Alkaline Phosphatase 41 U/L (41-126); BUN/Creat Ratio 15.71 Ratio (12.00-20.00); C Reactive Protein <0.4 mg/dL (0.0-0.8); Calcium 9.2 mg/dL (8.7-10.3); Carbon Dioxide 24.7 mmol/L (21.6-31.8); Chloride 108 mmol/L (96-109); Chol/HDL Ratio 3.91; Cholesterol 180 mg/dL (0-200); Creatine Kinase 87 U/L (26-186); Ferritin 2.1 ng/mL (10.0-291.0); Globulin 2.6 g/dL (1.6-3.3); Glucose 82 mg/dL (70-110); Iron 21 ug/dL (50-170); Non-African American GFR(CKD) 113.8 (60.0-200.0); Potassium 4.3 mmol/L (3.5-5.5); Sodium 141 mmol/L (135-145); Total Bilirubin 0.3 mg/dL (0.3-1.2); Total Iron Binding Capacity 384 ug/dL (228-460); Total Protein 6.9 g/dL (6.2-8.2)
== END | disposition home or self-care (01) ==
LOC: LABWHC1 13:26
PROVIDERS: ATTEND Internal Medicine
DX: Z00.00 Encounter for general adult medical examination without abnormal findings (principal); D64.9 Anemia, unspecified; E78.5 Hyperlipidemia, unspecified; E05.90 Thyrotoxicosis, unspecified without thyrotoxic crisis or storm; E55.9 Vitamin D deficiency, unspecified; D72.819 Decreased white blood cell count, unspecified
CPT/HCPCS: 36415; 80053; 80061; 81001; 82043; 82306; 82550; 82570; 82607; 82728; 83540; 83550; 84443; 85025; 85652; 86140

== ENCOUNTER → 2021-04-25 | Outpatient (CLI) | payer OTHER ==
[2021-04-26 01:24] LABS: Basophils # (A) 0.02 X 10*3/uL (0.00-0.10); Basophils % (A) 0.6 %; Eosinophils # (A) 0.04 X 10*3/uL (0.04-0.35); Eosinophils % (A) 1.2 %; HCT 37.4 % (37.2-46.3); HGB 12.4 g/dL (12.0-15.0); Lymphocytes # (A) 1.41 X 10*3/uL (0.90-5.00); Lymphocytes % (A) 42.5 %; MCH 31.2 pg (27.0-32.0); MCHC 33.2 g/dL (32.0-37.0); MCV 94.2 fL (80.0-97.0); Mean Platelet Volume 12.2 fL (9.5-12.2); Neutrophils # (A) 1.54 X 10*3/uL (1.80-7.70); Neutrophils % (A) 46.4 %; Platelet Count 228 X 10*3/uL (140-440); RBC 3.97 X 10*6/uL (4.10-5.20); RDW 12.7 % (11.5-14.5); WBC 3.32 X 10*3/uL (4.50-10.00)
[2021-04-26 05:13] LABS: % Iron Saturation 38.17 (12.00-45.00)
[2021-04-26 10:56] LABS: Ferritin 33.6 ng/mL (10.0-291.0)
== END | disposition home or self-care (01) ==
LOC: LABWHC1 16:24
PROVIDERS: ATTEND Internal Medicine
DX: E61.1 Iron deficiency (principal); D64.9 Anemia, unspecified
CPT/HCPCS: 36415; 82728; 83540; 83550; 85025

== ENCOUNTER 2021-04-29 23:56 | Emergency (ER) | payer OTHER ==
[2021-04-30 00:12] VITALS: BP 106/69; PULSE 84; RESP 18; TEMP 98
[2021-04-30] MEDS ORDERED: LIDOCAINE 5% PATCH TOPICAL STA (00:31)
[2021-04-30] MEDS ORDERED: CYCLOBENZAPRINE 10 MG TAB PO ONE (00:31)
--- NOTE | 2021-04-30 01:03 | ED ---
Back Pain HPI - General Chief Complaint: Back Pain/Injury Stated Complaint: Back and leg pain Time Seen by Provider: 04/30/21 00:12 Source: patient Limitations: language barrier - History of Present Illness Initial Comments: 35-year-old female presents to emergency room with a chief complaint of back pain. States she's been experiencing back pain the past several months, mostly located in the right paraspinal lumbar region. States the radiation goes down the right lower extremity. States it is worse whenever she is bending forward to fruit picker her son. She denies any saddle anesthesia, urinary retention with overflow or bowel incontinence. Denies any fevers or chills. Denies any injuries to the back. - Related Data Home Medications Medication Instructions Recorded Confirmed Pnv No.95/Ferrous Fum/Folic AC 1 each PO DAILY 11/21/18 11/21/18 [ Multivitamin Tablet] Previous Rx's Medication Instructions Recorded Ibuprofen [Motrin] 600 mg PO Q6HR PRN #30 tab 11/23/18 Cyclobenzaprine [Flexeril] 5 mg PO TID PRN #15 tablet 04/30/21 Allergies Allergy/AdvReac Type Severity Reaction Status Date / Time No Known Allergies Allergy Verified 04/30/21 00:09 Review of Systems ROS Statement: Those systems with pertinent positive or pertinent negative responses have been documented in the HPI. ROS Other: All systems not noted in ROS Statement are negative. Past Medical History Past Medical History: No Reported History Additional Past Medical History / Comment(s): OB history: She's had 3 previous vaginal deliveries. This is her fourth and she had care with ia since 10 weeks. O+, abs neg, Rub Imm, RPR NR, HEp B neg, HIV NR. normal 1hr GTT. GBS neg. History of Any Multi-Drug Resistant Organisms: None Reported Past Surgical History: No Surgical Hx Reported Past Anesthesia/Blood Transfusion Reactions: No Reported Reaction Past Psychological History: No Psychological Hx Reported Smoking Status: Never smoker Past Alcohol Use History: None Reported Past Drug Use History: None Reported - Past Family History Father Family Medical History: No Reported History General Exam Limitations: no limitations General appearance: alert, in no apparent distress Head exam: Present: atraumatic, normocephalic, normal inspection Eye exam: Present: normal appearance, PERRL, EOMI Pupils: Present: normal accommodation ENT exam: Present: normal exam, normal oropharynx, mucous membranes moist Neck exam: Present: normal inspection, full ROM. Absent: tenderness, lymphadenopathy Respiratory exam: Present: normal lung sounds bilaterally. Absent: respiratory distress, wheezes, rales, rhonchi, stridor Cardiovascular Exam: Present: regular rate, normal rhythm, normal heart sounds. Absent: systolic murmur GI/Abdominal exam: Present: soft. Absent: distended, tenderness, guarding Extremities exam: Present: normal inspection, full ROM, normal capillary refill. Absent: tenderness, pedal edema, joint swelling Back exam: Present: normal inspection, full ROM, tenderness, paraspinal tenderness (Right paraspinal tenderness in the lumbosacral spine), other (Positive leg raise test). Absent: CVA tenderness (R), CVA tenderness (L), muscle spasm, vertebral tenderness, rash noted Neurological exam: Present: alert, oriented X3 Psychiatric exam: Present: normal affect, normal mood Skin exam: Present: warm, dry, intact, normal color Course Vital Signs 04/30/21 00:09 Temperature 98.0 F Pulse Rate 84 Respiratory 18 Rate Blood Pressure 106/69 O2 Sat by Pulse 100 Oximetry Medical Decision Making - Medical Decision Making 35-year-old female presents to emergency room with a chief complaint of back pain. On physical examination, , tenderness over the lower paraspinal lumbar region with some radiation to the right lower extremity. No concern for cauda equina. Positive leg raise test on the right side. X-ray of the lumbar spine revealed mild degenerative changes. She was given a Lidoderm patch and Flexeril. Will be discharged with Flexeril. Patient wanted to leave before the x-ray results were revealed. I did recommend that she follow up with costume specialist. Strict return parameters were thoroughly discussed patient is a 79-year-old. Case discussed with Disposition Clinical Impression: Lumbar radiculopathy, right Disposition: HOME SELF-CARE Condition: Stable Instructions (If sedation given, give patient instructions): Acute Low Back Pain (ED), Lower Back Exercises (ED) Additional Instructions: DisPlease return to the Emergency Department if symptoms worsen or any other concerns. Prescriptions: Cyclobenzaprine [Flexeril] 5 mg PO TID PRN #15 tablet PRN Reason: Muscle Spasm Is patient prescribed a controlled substance at d/c from ED?: No Referrals: Terrell Duarte MD [Primary Care Provider] - 1-2 days Time of Disposition: 01:23
--- NOTE | 2021-04-30 01:32 | XR ---
EXAM: XR Lumbosacral Spine, 2 or 3 Views CLINICAL HISTORY: Lumbar radiculopathy right TECHNIQUE: Frontal and lateral views of the lumbar spine and sacrum. COMPARISON: 10/02/2017 FINDINGS: Vertebrae: No significant abnormality. No acute fracture. Normal alignment. Sacrum/coccyx: Unremarkable as visualized. No acute fracture. Disc spaces: Mild degenerative changes of the lower lumbar spine. Soft tissues: No significant abnormality. Tubes, lines and devices: Intrauterine device projects over the pelvis. IMPRESSION: Mild degenerative changes of the lower lumbar spine not significantly progressed since prior exam.
== END 2021-04-30 01:26 | disposition home or self-care (01) ==
LOC: EC 23:56
DX: O99.891 Other specified diseases and conditions complicating pregnancy (principal); M54.16 Radiculopathy, lumbar region; Z3A.00 Weeks of gestation of pregnancy not specified
CPT/HCPCS: 72100; 99283

== ENCOUNTER → 2021-08-13 | Outpatient (CLI) | payer OTHER ==
--- NOTE | 2021-08-13 13:47 | US ---
EXAMINATION TYPE: US pelvic complete DATE OF EXAM: 08/13/2021 COMPARISON: NONE CLINICAL HISTORY: R10.2 Pelvic pain. TECHNIQUE: Transvaginal (TV) Date of LMP: 07-28-21 EXAM MEASUREMENTS: Uterus: 9.6 x 5.3 x 6.4 cm Endometrial Stripe: 1.1 cm Right Ovary: 2.0 x 1.4 x 2.2 cm Left Ovary: 3.2 x 1.6 x 1.7 cm 1. Uterus: Anteverted, probable fibroid measuring 2.0 x 2.2 x 1.9cm 2. Endometrium: small amount of ff in endometrium measuring 1mm 3. Right Ovary: wnl 4. Left Ovary: wnl 5. Bilateral Adnexa: Prominent vessels seen bilateral, more so on right 6. Posterior cul-de-sac: wnl Echogenic focus also present with shadowing consistent with indwelling intrauterine contraceptive dev ice. Grayscale and color Doppler imaging performed of the ovaries and adnexal regions, color flow not ed to the adnexa IMPRESSION: Fibroid uterus. Small amount of fluid along the endometrium.
== END | disposition home or self-care (01) ==
LOC: RADUSWWP 12:15
PROVIDERS: ATTEND Obstetrics & Gynecology
DX: D25.9 Leiomyoma of uterus, unspecified (principal)
CPT/HCPCS: 76830; 76856

== ENCOUNTER 2021-10-04 23:14 | Emergency (ER) | payer OTHER ==
[2021-10-04 23:48] VITALS: TEMP 98.6
--- NOTE | 2021-10-05 00:28 | XR ---
EXAMINATION TYPE: XR chest 1V portable DATE OF EXAM: 10/05/2021 COMPARISON: NONE HISTORY: Chest pain TECHNIQUE: Single view FINDINGS: Heart and mediastinum are normal. Lungs are clear. Diaphragm is normal. Bony thorax is inta ct. IMPRESSION: Normal chest
--- NOTE | 2021-10-05 01:52 | ED ---
URI HPI - General Chief Complaint: Upper Respiratory Infection Stated Complaint: SOB, wants covid test Time Seen by Provider: 10/05/21 01:29 Source: patient, RN notes reviewed Mode of arrival: ambulatory Limitations: no limitations - History of Present Illness Initial Comments: Patient is a 35-year-old female presenting to the emergency Department with complaints of body aches, fevers, runny nose over the past 3 days. Patient denies any chest pains but has been coughing, no shortness of breath. She denies any abdominal pains, no nausea or vomiting, no diarrhea. She still been trying to eat and drink as normal. Patient has no other pertinent past medical history. She has no further complaints. Her vital signs are stable upon arrival. - Related Data Home Medications Medication Instructions Recorded Confirmed Pnv No.95/Ferrous Fum/Folic AC 1 each PO DAILY 11/21/18 11/21/18 [ Multivitamin Tablet] Previous Rx's Medication Instructions Recorded Ibuprofen [Motrin] 600 mg PO Q6HR PRN #30 tab 11/23/18 Cyclobenzaprine [Flexeril] 5 mg PO TID PRN #15 tablet 04/30/21 Allergies Allergy/AdvReac Type Severity Reaction Status Date / Time No Known Allergies Allergy Verified 10/04/21 23:48 Review of Systems ROS Statement: Those systems with pertinent positive or pertinent negative responses have been documented in the HPI. ROS Other: All systems not noted in ROS Statement are negative. Past Medical History Past Medical History: No Reported History Additional Past Medical History / Comment(s): OB history: She's had 3 previous vaginal deliveries. This is her fourth and she had care with me since 10 weeks. O+, abs neg, Rub Imm, RPR NR, HEp B neg, HIV NR. normal 1hr GTT. GBS neg. History of Any Multi-Drug Resistant Organisms: None Reported Past Surgical History: No Surgical Hx Reported Past Anesthesia/Blood Transfusion Reactions: No Reported Reaction Past Psychological History: No Psychological Hx Reported Smoking Status: Never smoker Past Alcohol Use History: None Reported Past Drug Use History: None Reported - Past Family History Father Family Medical History: No Reported History General Exam - General Exam Comments Initial Comments: GENERAL: Patient is well-developed and well-nourished. Patient is nontoxic and in no acute distress. HEAD: Atraumatic, normocephalic. EYES: Pupils equal round and reactive to light, extraocular movements intact, sclera anicteric, conjunctiva are normal. Eyelids were unremarkable. ENT: Nares patent, oropharynx clear without exudates. Moist mucous membranes. NECK: Normal range of motion, supple without lymphadenopathy or JVD. LUNGS: Unlabored respirations. Breath sounds clear to auscultation bilaterally and equal. No wheezes rales or rhonchi. HEART: Regular rate and rhythm without murmurs, rubs or gallops. ABDOMEN: Soft, nontender, normoactive bowel sounds. No guarding, no rebound. No masses appreciated. MUSCULOSKELETAL: Normal extremities with adequate strength and normal range of motion, no pitting or edema. No clubbing or cyanosis. NEUROLOGICAL: Patient is alert and oriented x 3. SKIN: Warm, Dry, normal turgor, no rashes or lesions noted. Limitations: no limitations Course Vital Signs 10/04/21 23:44 Temperature 98.6 F Pulse Rate 80 Respiratory 20 Rate Blood Pressure 114/74 O2 Sat by Pulse 100 Oximetry Medical Decision Making - Medical Decision Making Patient is a 35-year-old female here with viral type symptoms over the past 3 days. Her vitals are stable here. Patient's rapid Covid is positive, chest x- ray is unremarkable. I discussed these findings with her. I did recommend monoclonal antibodies, patient refuses. I recommended Tylenol Motrin for her symptoms. She can follow-up with her primary care. She is agreeable to this plan. She is stable for discharge. - Lab Data Lab Results 10/04/21 Range/Units 23:50 Coronavirus (PCR) Detected A (Not Detectd) Disposition Clinical Impression: COVID-19 Disposition: HOME SELF-CARE Condition: Stable Instructions (If sedation given, give patient instructions): Coronavirus Disease 2019 (COVID-19) Additional Instructions: Please return to the Emergency Department if symptoms worsen or any other concerns. May take Tylenol and/or Motrin for ear symptoms. Increase your fluids. Follow up with your doctor as needed. Is patient prescribed a controlled substance at d/c from ED?: No Referrals: Terrell Duarte MD [Primary Care Provider] - 1-2 days Time of Disposition: 01:51
[2021-10-05 02:13] VITALS: BP 118/76; PULSE 88; RESP 18
== END 2021-10-05 02:14 | disposition home or self-care (01) ==
LOC: EC 23:14
DX: U07.1 COVID-19 (principal)
CPT/HCPCS: 71045; 87635; 99283

== ENCOUNTER 2021-10-13 17:30 | Emergency (ER) | payer OTHER ==
[2021-10-13 18:14] VITALS: BP 103/72; PULSE 75; RESP 18; TEMP 98.4
--- NOTE | 2021-10-13 19:58 | ED ---
General Adult HPI - General Chief complaint: Weakness Stated complaint: Covid test Source: patient Mode of arrival: ambulatory - History of Present Illness Initial comments: Is a pleasant 35-year-old female test positive for COVID-19 14 days ago. She came back today for repeat testing stating that she wanted to have a negative test because she's been retaining from her family. Patient reports she's fe eling better her symptoms have improved significantly. - Related Data Home Medications Medication Instructions Recorded Confirmed Pnv No.95/Ferrous Fum/Folic AC 1 each PO DAILY 11/21/18 11/21/18 [ Multivitamin Tablet] Previous Rx's Medication Instructions Recorded Ibuprofen [Motrin] 600 mg PO Q6HR PRN #30 tab 11/23/18 Cyclobenzaprine [Flexeril] 5 mg PO TID PRN #15 tablet 04/30/21 Allergies Allergy/AdvReac Type Severity Reaction Status Date / Time No Known Allergies Allergy Verified 10/04/21 23:48 Review of Systems ROS Statement: Those systems with pertinent positive or pertinent negative responses have been documented in the HPI. ROS Other: All systems not noted in ROS Statement are negative. Past Medical History Past Medical History: No Reported History Additional Past Medical History / Comment(s): OB history: She's had 3 previous vaginal deliveries. This is her fourth and she had care with me since 10 weeks. O+, abs neg, Rub Imm, RPR NR, HEp B neg, HIV NR. normal 1hr GTT. GBS neg. History of Any Multi-Drug Resistant Organisms: None Reported Past Surgical History: No Surgical Hx Reported Past Anesthesia/Blood Transfusion Reactions: No Reported Reaction Past Psychological History: No Psychological Hx Reported Smoking Status: Never smoker Past Alcohol Use History: None Reported Past Drug Use History: None Reported - Past Family History Father Family Medical History: No Reported History General Exam - General Exam Comments Initial Comments: Physical Exam GENERAL: Patient is well-developed and well-nourished. Patient is nontoxic and well-hydrated and is in no distress. HENT: Normocephalic, Atraumatic. EYES: PERRL, EOMI PULMONARY: Unlabored respirations. CARDIOVASCULAR: RRR Warm and well perfused extremities ABDOMEN: Non-distended SKIN: No rashes or bruising : Deferred NEUROLOGIC: Alert and oriented Normal speech Normal gait MUSCULOSKELETAL: Moving all extremities with no apparent injury Course Vital Signs 10/13/21 18:09 Temperature 98.4 F Pulse Rate 75 Respiratory 18 Rate Blood Pressure 103/72 O2 Sat by Pulse 98 Oximetry Medical Decision Making - Medical Decision Making Patient was seen and evaluated, history is obtained from the patient, patient positive for COVID-19 for 14 days not a candidate for any therapy at this time advised her that she does not need further testing as some people continue test positive for months at a time. In 14 days status post onset of symptoms she can stop quarantine. - Lab Data Lab Results 10/13/21 Range/Units 18:14 Coronavirus (PCR) Detected A (Not Detectd) Disposition Clinical Impression: COVID-19 Disposition: HOME SELF-CARE Condition: Stable Instructions (If sedation given, give patient instructions): Coronavirus Disease 2019 (COVID-19) Is patient prescribed a controlled substance at d/c from ED?: No Referrals: Terrell Duarte MD [Primary Care Provider] - 1-2 days
== END 2021-10-13 20:12 | disposition home or self-care (01) ==
LOC: EC 17:30
DX: U07.1 COVID-19 (principal); Z79.1 Long term (current) use of non-steroidal anti-inflammatories (NSAID); Z79.899 Other long term (current) drug therapy
CPT/HCPCS: 87635; 99282

== ENCOUNTER → 2022-05-20 | Outpatient (CLI) | payer OTHER ==
[2022-05-20 14:18] LABS: Basophils # (A) 0.04 X 10*3/uL (0.00-0.10); Basophils % (A) 1.1 %; Eosinophils # (A) 0.09 X 10*3/uL (0.04-0.35); Eosinophils % (A) 2.4 %; HCT 31.2 % (37.2-46.3); HGB 9.5 g/dL (12.0-15.0); Immature Grans, Automated 0.3 %; Lymphocytes # (A) 1.42 X 10*3/uL (0.90-5.00); Lymphocytes % (A) 37.6 %; MCH 26.7 pg (27.0-32.0); MCHC 30.4 g/dL (32.0-37.0); MCV 87.6 fL (80.0-97.0); Mean Platelet Volume 11.6 fL (9.5-12.2); Monocytes % (A) 10.6 %; NRBC Per 100 WBC 0 /100 WBCS (0.0-0.0); Neutrophils # (A) 1.82 X 10*3/uL (1.80-7.70); Platelet Count 255 X 10*3/uL (140-440); RBC 3.56 X 10*6/uL (4.10-5.20); RDW 14.5 % (11.5-14.5); WBC 3.78 X 10*3/uL (4.50-10.00)
[2022-05-20 14:57] LABS: ALT 9 U/L (8-44); AST 16 U/L (13-35); African American GFR (CKD) 136.6 (60.0-200.0); Albumin 4.1 g/dL (3.8-4.9); Albumin/Globulin Ratio 1.55 (1.60-3.17); Alkaline Phosphatase 40 U/L (41-126); BUN/Creat Ratio 15.79 Ratio (12.00-20.00); Blood Urea Nitrogen 9.5 mg/dL (9.0-27.0); Calcium 8.9 mg/dL (8.7-10.3); Carbon Dioxide 24.1 mmol/L (20.0-27.5); Chloride 104 mmol/L (96-109); Globulin 2.6 g/dL (1.6-3.3); Glucose 92 mg/dL (70-110); Iron 26 ug/dL (50-170); Non-African American GFR(CKD) 117.8 (60.0-200.0); Potassium 4.3 mmol/L (3.5-5.5); Sodium 137 mmol/L (135-145); Total Bilirubin <0.15 mg/dL (0.30-1.20); Total Iron Binding Capacity 438 ug/dL (228-460); Total Protein 6.7 g/dL (6.2-8.2)
[2022-05-20 14:58] LABS: C Reactive Protein <0.30 mg/dL (0.00-0.80); Chol/HDL Ratio 3.42 Ratio; Ferritin 4.9 ng/mL (10.0-291.0); VLDL Calculation 11.54 mg/dL (5.00-40.00)
[2022-05-20 17:14] LABS: Magnesium 1.8 mg/dL (1.5-2.4); Phosphorus 3.2 mg/dL (2.4-5.1)
[2022-05-20 17:44] LABS: Erythrocyte Sedimentation Rate 10 mm/Hr (0-20)
== END | disposition home or self-care (01) ==
LOC: LABWHC1 08:34
PROVIDERS: ATTEND Internal Medicine
DX: Z00.00 Encounter for general adult medical examination without abnormal findings (principal); E87.0 Hyperosmolality and hypernatremia; E55.9 Vitamin D deficiency, unspecified; D72.819 Decreased white blood cell count, unspecified
CPT/HCPCS: 36415; 80053; 80061; 82306; 82533; 82728; 83540; 83550; 83735; 84100; 85025; 85652; 86140

== ENCOUNTER → 2022-08-26 | Outpatient (CLI) | payer OTHER ==
--- NOTE | 2022-08-27 07:11 | US ---
EXAMINATION TYPE: US thyroid st tissue head/neck DATE OF EXAM: 08/26/2022 COMPARISON: NONE CLINICAL HISTORY: N81.201 Ovarian cyst E04.9 Goiter. Goiter GLAND SIZE: Right Lobe: 5.2 x 1.4 x 1.8 cm Overall Parenchyma: homogenous Left Lobe: 4.3 x 1.3 x 1.6 cm Overall Parenchyma: homogeneous Isthmus Thickness: 0.4 cm NODULES RIGHT: # of nodules measured on right: 1 1. 0.5 X 0.4 x 0.4 cm, lower, solid or almost completely solid, hypoechoic nodule, which is wider t blandon tall, with ill-defined margins, without echogenic foci. TR 4. Prior size: No prior LEFT: # of nodules measured on left: 0 ISTHMUS: # of nodules measured in the isthmus: 2 1. 0.5 X 0.5 x 0.7 cm solid or almost completely solid, hypoechoic nodule, which is wider than tall , with smooth margins, with echogenic foci. TR 4. Prior size: No prior 2. 0.3 x 0.3 x 0.3 cm solid, hypoechoic nodule, which is wider than tall, with smooth margins, withou t echogenic foci. TR 4. Prior size: No prior Bilateral neck scanned, no evidence of lymphadenopathy. Multiple, small, sub-centimeter nodules. IMPRESSION: Bilateral subcentimeter TR 4 nodules. No follow-up is recommended based on size. 2017 ACR TI-RADS LEVEL: TR-RADS 4 - Moderately Suspicious: Follow if > 1 cm, FNA if > 1.5 cm *Highest TI-RADS level nodule reported
--- NOTE | 2022-08-27 07:17 | US ---
EXAMINATION TYPE: US pelvic complete DATE OF EXAM: 08/26/2022 COMPARISON: US 08/13/2021 CLINICAL HISTORY: N81.201 Ovarian cyst E04.9 Goiter. F/U prior/ pelvic pain TECHNIQUE: Transabdominal (TA). Transabdominal sonographic images of the pelvis were acquired. Date of LMP: 08/23/2022 EXAM MEASUREMENTS: Uterus: 10.1 x 5.2 x 6.8 cm Endometrial Stripe: 0.7 cm Right Ovary: 2.4 x 2.6 x 2.1 cm Left Ovary: 2.7 x 2.5 x 2.2 cm 1. Uterus: Anteverted, intramural fibroid right uterine body= 3.4 x 3.0 x 2.8 cm- increased in size when compared to prior . Previously 2.0 x 2.2 x 1.9 cm. IUD in correct position 2. Endometrium: wnl 3. Right Ovary: wnl 4. Left Ovary: wnl 5. Bilateral Adnexa: wnl 6. Posterior cul-de-sac: wnl IMPRESSION: 1. No acute pelvic process. 2. IUD appears in appropriate position. 3. Increased size of intramural uterine fibroid measuring up to 3.4 cm.
== END | disposition home or self-care (01) ==
LOC: RADUSWWP 16:32
PROVIDERS: ATTEND Family Medicine
DX: N83.201 Unspecified ovarian cyst, right side (principal); E04.2 Nontoxic multinodular goiter
CPT/HCPCS: 76536; 76856

== ENCOUNTER 2023-03-21 04:24 | Emergency (ER) | payer OTHER ==
[2023-03-21 04:35] VITALS: TEMP 98.8
--- NOTE | 2023-03-21 05:12 | XR ---
EXAMINATION TYPE: XR chest 2V DATE OF EXAM: 03/21/2023 COMPARISON: Chest x-ray October 05, 2021 HISTORY: Syncope and weakness. TECHNIQUE: Frontal and lateral views of the chest are obtained. FINDINGS: There is no suspicious focal air space opacity, pleural effusion, or pneumothorax seen. T he cardiac silhouette size is stable and within normal limits. The osseous structures are intact. IMPRESSION: No acute cardiopulmonary process. No significant change from prior.
--- NOTE | 2023-03-21 05:14 | CT ---
EXAMINATION TYPE: CT brain cspine wo con DATE OF EXAM: 03/21/2023 COMPARISON: NONE HISTORY: Syncope and weakness. Neck pain CT DLP: 355 mGycm. Automated Exposure Control for Dose Reduction was Utilized. TECHNIQUE: CT scan of the head and cervical spine are performed without contrast. FINDINGS: There is no acute intracranial hemorrhage, mass effect, or midline shift identified. The ventricles and sulci are within normal limits in size. Yepez-white matter differentiation is maintain ed. The calvarium is intact. The globes are intact and the visualized sinuses are clear. Cervical spine is visualized in its entirety from C1 through upper thoracic levels and demonstrates s traightened alignment without evidence of acute fracture or dislocation. Prevertebral soft tissue ap pears within normal limits. The C1-C2 articulation is within normal limits on the coronal images. V ertebral body heights and disc space heights are preserved. Spinal canal is maintained. Thyroid gland is heterogeneous with scattered small nodules. Lung apices show no pneumothorax. IMPRESSION: 1. There is no acute fracture or dislocation evident in the cervical spine. 2. No acute intracranial hemorrhage or midline shift is seen.
[2023-03-21 05:16] LABS: Basophils % (A) 1 %; Eosinophils # (A) 0.1 k/uL (0-0.7); Eosinophils % (A) 1 %; HCT 34.6 % (34.0-46.0); Lymphocytes # (A) 1.4 k/uL (1.0-4.8); Lymphocytes % (A) 23 %; MCH 30.7 pg (25.0-35.0); MCHC 34.7 g/dL (31.0-37.0); MCV 88.6 fL (80.0-100.0); Mean Platelet Volume 8.4; Monocytes # (A) 0.3 k/uL (0-1.0); Monocytes % (A) 4 %; Neutrophils # (A) 4.4 k/uL (1.3-7.7); Neutrophils % (A) 70 %; Platelet Count 252 k/uL (150-450); RBC 3.91 m/uL (3.80-5.40); RDW 13.5 % (11.5-15.5); WBC 6.3 k/uL (3.8-10.6)
[2023-03-21 05:28] LABS: ALT 14 U/L (4-34); AST 22 U/L (14-36); African American GFR (CKD) >90 (>60 ml/min/1.73 sqM); Alkaline Phosphatase 52 U/L (38-126); Anion Gap 9 mmol/L; Blood Urea Nitrogen 6 mg/dL (7-17); Calcium 8.8 mg/dL (8.4-10.2); Carbon Dioxide 26 mmol/L (22-30); Chloride 104 mmol/L (98-107); Glucose 97 mg/dL (74-99); Non-African American GFR(CKD) >90 (>60 ml/min/1.73 sqM); Potassium 3.8 mmol/L (3.5-5.1); Sodium 139 mmol/L (137-145); Total Bilirubin 0.4 mg/dL (0.2-1.3); Total Protein 7.5 g/dL (6.3-8.2)
[2023-03-21] MEDS ORDERED: LIDOCAINE 1% INJ 10MG/ML (30 ML VIAL-PF) SQ ONE (05:59)
--- NOTE | 2023-03-21 06:54 | ED ---
General Adult HPI - General Chief complaint: Syncope Stated complaint: Syncope Time Seen by Provider: 03/21/23 04:30 Source: patient, EMS Mode of arrival: EMS Limitations: no limitations - History of Present Illness Initial comments: 37-year-old female presents to the emergency department after a syncopal episode. She was recently started on Momence, ibuprofen and antibiotics from her dentist. She had significant dental work done on her right lower jaw. States that she woke in the middle the night and attempted to ambulate however passed out likely due to the narcotics. She is unsure what she hit her head on. She was not out for a long but did sustain a facial laceration. She does not take any blood thinners. No headache or visual changes. No neck pain. Denies any chest pain or shortness of breath. No other alleviating, precipitating or modifying factors - Related Data Home Medications Medication Instructions Recorded Confirmed Pnv No.95/Ferrous Fum/Folic AC 1 each PO DAILY 11/21/18 11/21/18 [ Multivitamin Tablet] Previous Rx's Medication Instructions Recorded Ibuprofen [Motrin] 600 mg PO Q6HR PRN #30 tab 11/23/18 Cyclobenzaprine [Flexeril] 5 mg PO TID PRN #15 tablet 04/30/21 Vit E Acet/Wheat Germ/Aloe V 1 applic TOPICAL BID #60 gm 03/21/23 [Vitamin E Ointment] Allergies Allergy/AdvReac Type Severity Reaction Status Date / Time No Known Allergies Allergy Verified 10/04/21 23:48 Review of Systems ROS Statement: Those systems with pertinent positive or pertinent negative responses have been documented in the HPI. ROS Other: All systems not noted in ROS Statement are negative. Past Medical History Past Medical History: No Reported History Additional Past Medical History / Comment(s): OB history: She's had 3 previous vaginal deliveries. This is her fourth and she had care with me since 10 weeks. O+, abs neg, Rub Imm, RPR NR, HEp B neg, HIV NR. normal 1hr GTT. GBS neg. History of Any Multi-Drug Resistant Organisms: None Reported Past Surgical History: No Surgical Hx Reported Past Anesthesia/Blood Transfusion Reactions: No Reported Reaction Past Psychological History: No Psychological Hx Reported Smoking Status: Never smoker Past Alcohol Use History: None Reported Past Drug Use History: None Reported - Past Family History Father Family Medical History: No Reported History General Exam Limitations: no limitations General appearance: alert, in no apparent distress Head exam: Present: normocephalic, other (2.0 cm laceration between the eyebrows. Minimal active bleeding. no underlying bony fracture) Eye exam: Present: normal appearance, PERRL, EOMI. Absent: scleral icterus, conjunctival injection, periorbital swelling ENT exam: Present: normal exam, mucous membranes moist Neck exam: Present: normal inspection. Absent: tenderness, meningismus, lymphadenopathy Respiratory exam: Present: normal lung sounds bilaterally. Absent: respiratory distress, wheezes, rales, rhonchi, stridor Cardiovascular Exam: Present: regular rate, normal rhythm, normal heart sounds. Absent: systolic murmur, diastolic murmur, rubs, gallop, clicks GI/Abdominal exam: Present: soft, normal bowel sounds. Absent: distended, tenderness, guarding, rebound, rigid Extremities exam: Present: normal inspection, full ROM, normal capillary refill. Absent: tenderness, pedal edema, joint swelling, calf tenderness Back exam: Present: normal inspection Neurological exam: Present: alert, oriented X3, CN II-XII intact Psychiatric exam: Present: normal affect, normal mood Skin exam: Present: warm, dry, intact, normal color. Absent: rash Course Vital Signs 03/21/23 03/21/23 04:26 07:13 Temperature 98.8 F Pulse Rate 74 68 Respiratory 16 14 Rate Blood Pressure 118/80 118/62 O2 Sat by Pulse 98 99 Oximetry Procedures - Laceration Laceration #1 Consent Obtained: verbal consent Indication: laceration Site: scalp Size (cm): 2 Description: linear Depth: simple, single layer Anesthetic Used: lidocaine 1%, without epi Anesthesia Technique: local infiltration Amount (mls): 5 Pre-repair: wound explored, irrigated extensively, deep structures intact Type of Sutures: nylon Size of Sutures: 6-0 Number of Sutures: 4 Technique: simple, interrupted Patient Tolerated Procedure: well, no complications Medical Decision Making - Medical Decision Making Was pt. sent in by a medical professional or institution (, PA, ORE FIELDER, urgent care, hospital, or prison...) When possible be specific @ -no Did you speak to anyone other than the patient for history (EMS, parent, family, police, friend...)? What history was obtained from this source @ -EMS Did you review nursing and triage notes (agree or disagree)? Why? @ -I reviewed and agree with nursing and triage notes Were old charts reviewed (outside hosp., previous admission, EMS record, old EKG, old radiological studies, urgent care reports/EKG's, prison records)? Report findings @ -no old charts were reviewed Differential Diagnosis (chest pain, altered mental status, abdominal pain women, abdominal pain men, vaginal bleeding, weakness, fever, dyspnea, syncope, hea dache, dizziness, GI bleed, back pain, seizure, CVA, palpatations, mental health, musculoskeletal)? @ -pe, medication side effect, vasovagal syncope, cardiac dysrhythmia EKG interpreted by me (3pts min.). @ -yes - sinus rhythm X-rays interpreted by me (1pt min.). @ -yes, no acute process CT interpreted by me (1pt min.). @ -yes - no fractures U/S interpreted by me (1pt. min.). @ -None done What testing was considered but not performed or refused? (CT, X-rays, U/S, labs)? Why? @ -None What meds were considered but not given or refused? Why? @ -None Did you discuss the management of the patient with other professionals (professionals i.e. , PA, ORE FIELDER, lab, RT, psych nurse, social security assessor, air marshal, teacher, licensed mortgage loan officer, pillowcase cutter)? Give summary @ -No Was smoking cessation discussed for >3mins.? @ -No Was critical care preformed (if so, how long)? @ -No Were there social determinants of health that impacted care today? How? (Homelessness, low income, unemployed, alcoholism, drug addiction, transportation, low edu. Level, literacy, decrease access to med. care, fci, rehab)? @ -No Was there de-escalation of care discussed even if they declined (Discuss DNR or withdrawal of care, Hospice)? DNR status @ -No What co-morbidities impacted this encounter? (DM, HTN, Smoking, COPD, CAD, Cancer, CVA, ARF, Chemo, Hep., AIDS, mental health diagnosis, sleep apnea, morbid obesity)? @ -None Was patient admitted / discharged? Hospital course, mention meds given and route, prescriptions, significant lab abnormalities, going to OR and other pertinent info. @ -Upon arrival patient was placed into room 14. A thorough history and physical exam was performed. IV access is established and laboratory studies were conducted. CT is performed of the patient's head and cervical spine. CT demonstrates no acute fractures. Patient does take one of her Motrin 600s. I do repair her facial laceration. Patient will be discharged home at this time. Instructed to follow-up in 5-7 days to have her stitches removed. Patient was agreeable to this and discharged home in stable condition Undiagnosed new problem with uncertain prognosis? @ -yes Drug Therapy requiring intensive monitoring for toxicity (Heparin, Nitro, Insulin, Cardizem)? @ -No Were any procedures done? @ -yes, laceation repair Diagnosis/symptom? @ -acute syncope, blunt head trauma, facial laceration Acute, or Chronic, or Acute on Chronic? @ -acute Uncomplicated (without systemic symptoms) or Complicated (systemic symptoms)? @ -complicated Side effects of treatment? @ -No Exacerbation, Progression, or Severe Exacerbation? @ -No Poses a threat to life or bodily function? How? (Chest pain, USA, VT, pneumonia, PE, COPD, DKA, ARF, appy, cholecystitis, CVA, Diverticulitis, Homicidal, Suici blas, threat to staff... and all critical care pts) @ -no - Lab Data Result diagrams: 03/21/23 05:04 03/21/23 05:04 Lab Results 03/21/23 03/21/23 Range/Units 05:04 05:04 WBC 6.3 (3.8-10.6) k/uL RBC 3.91 (3.80-5.40) m/uL Hgb 12.0 (11.4-16.0) gm/dL Hct 34.6 (34.0-46.0) % MCV 88.6 (80.0-100.0) fL MCH 30.7 (25.0-35.0) pg MCHC 34.7 (31.0-37.0) g/dL RDW 13.5 (11.5-15.5) % Plt Count 252 (150-450) k/uL MPV 8.4 Neutrophils % 70 % Lymphocytes % 23 % Monocytes % 4 % Eosinophils % 1 % Basophils % 1 % Neutrophils # 4.4 (1.3-7.7) k/uL Lymphocytes # 1.4 (1.0-4.8) k/uL Monocytes # 0.3 (0-1.0) k/uL Eosinophils # 0.1 (0-0.7) k/uL Basophils # 0.0 (0-0.2) k/uL Sodium 139 (137-145) mmol/L Potassium 3.8 (3.5-5.1) mmol/L Chloride 104 (98-107) mmol/L Carbon Dioxide 26 (22-30) mmol/L Anion Gap 9 mmol/L BUN 6 L (7-17) mg/dL Creatinine 0.54 (0.52-1.04) mg/dL Est GFR (CKD-EPI)AfAm >90 (>60 ml/min/1.73 sqM) Est GFR (CKD-EPI)NonAf >90 (>60 ml/min/1.73 sqM) Glucose 97 (74-99) mg/dL Calcium 8.8 (8.4-10.2) mg/dL Total Bilirubin 0.4 (0.2-1.3) mg/dL AST 22 (14-36) U/L ALT 14 (4-34) U/L Alkaline Phosphatase 52 (38-126) U/L Total Protein 7.5 (6.3-8.2) g/dL Albumin 4.0 (3.5-5.0) g/dL Disposition Clinical Impression: Scalp laceration, Syncope, Head injury Disposition: HOME SELF-CARE Condition: Stable Instructions (If sedation given, give patient instructions): Facial Laceration (ED) Additional Instructions: Please have your stitches taken out in 7 days. Use the vitamin E or Mederma cream AFTER they are taken out. Use sunscreen in the sun. Return for any new or worsening symptoms Prescriptions: Vit E Acet/Wheat Germ/Aloe V [Vitamin E Ointment] 1 applic TOPICAL BID #60 gm Is patient prescribed a controlled substance at d/c from ED?: No Referrals: Terrell Duarte MD [Primary Care Provider] - 1-2 days Time of Disposition: 06:53
[2023-03-21 07:15] VITALS: BP 118/62; PULSE 68; RESP 14
== END 2023-03-21 07:15 | disposition home or self-care (01) ==
LOC: EC 04:24
DX: S01.01XA Laceration without foreign body of scalp, initial encounter (principal); R55 Syncope and collapse; X58.XXXA Exposure to other specified factors, initial encounter
CPT/HCPCS: 36415; 80053; 85025; 71046; 72125; 70450; 99284; 12001; J2001

== ENCOUNTER 2023-05-21 15:00 | Emergency (ER) | payer OTHER ==
[2023-05-21 15:34] VITALS: RESP 18; TEMP 98.6
--- NOTE | 2023-05-21 16:47 | XR ---
EXAMINATION TYPE: XR foot complete RT DATE OF EXAM: 05/21/2023 COMPARISON: None HISTORY: Pain TECHNIQUE: 3 view right foot FINDINGS: No acute fracture or dislocation is evident. Soft tissues appear normal. Joint spaces are p reserved. Tiny secondary ossification center adjacent to the cuboid appears to be present. Follow up exams can be performed 7-10 days from acute trauma for continued pain. IMPRESSION: 1. No acute osseous abnormality right foot.
[2023-05-21 17:49] VITALS: BP 117/84; PULSE 77
[2023-05-21] MEDS ORDERED: IBUPROFEN 600 MG TAB PO STA (18:11)
[2023-05-21] MEDS ORDERED: IBUPROFEN 600 MG STARTER PACK 4 TAB BTL PO STA (18:11)
--- NOTE | 2023-05-21 18:12 | ED ---
Lower Extremity Injury HPI - General Chief Complaint: Extremity Injury, Lower Stated Complaint: Rt Leg Injury Time Seen by Provider: 05/21/23 17:33 Source: patient, RN notes reviewed, old records reviewed Mode of arrival: wheelchair Limitations: no limitations - History of Present Illness Initial Comments: This is a 37-year-old female to the emergency department today for evaluation of foot pain. Patient has full pain with no known cause of injury. Patient denies H medic injury. No shortness of breath cough or chest pain. Other symptoms. Patient has no redness or swelling no fevers. Patient states that her foot does not feel cold and symptoms of been progressively worse with weightbearing. Patient states she noted the pain starting last night but it became harder to walk on today secondary to pain. Patient can bear weight MD Complaint: foot injury -: days(s) Injury: Foot: Right Type of Injury: blunt Place: home Severity: moderate Severity scale (1-10): 4 Worsens With: nothing Context: direct blow Associated Symptoms: swelling, able to partially bear weight - Related Data Home Medications Medication Instructions Recorded Confirmed Pnv No.95/Ferrous Fum/Folic AC 1 each PO DAILY 11/21/18 11/21/18 [ Multivitamin Tablet] Previous Rx's Medication Instructions Recorded Ibuprofen [Motrin] 600 mg PO Q6HR PRN #30 tab 11/23/18 Cyclobenzaprine [Flexeril] 5 mg PO TID PRN #15 tablet 04/30/21 Vit E Acet/Wheat Germ/Aloe V 1 applic TOPICAL BID #60 gm 03/21/23 [Vitamin E Ointment] Allergies Allergy/AdvReac Type Severity Reaction Status Date / Time No Known Allergies Allergy Verified 05/21/23 15:34 Review of Systems ROS Statement: Those systems with pertinent positive or pertinent negative responses have been documented in the HPI. ROS Other: All systems not noted in ROS Statement are negative. Past Medical History Past Medical History: No Reported History Additional Past Medical History / Comment(s): OB history: She's had 3 previous vaginal deliveries. This is her fourth and she had care with me since 10 weeks. O+, abs neg, Rub Imm, RPR NR, HEp B neg, HIV NR. normal 1hr GTT. GBS neg. History of Any Multi-Drug Resistant Organisms: None Reported Past Surgical History: No Surgical Hx Reported Past Anesthesia/Blood Transfusion Reactions: No Reported Reaction Past Psychological History: No Psychological Hx Reported Smoking Status: Never smoker Past Alcohol Use History: None Reported Past Drug Use History: None Reported - Past Family History Father Family Medical History: No Reported History General Exam Limitations: no limitations General appearance: alert, in no apparent distress Head exam: Present: atraumatic, normocephalic, normal inspection Eye exam: Present: normal appearance, PERRL, EOMI. Absent: scleral icterus, conjunctival injection, periorbital swelling ENT exam: Present: normal exam, mucous membranes moist Neck exam: Present: normal inspection. Absent: tenderness, meningismus, lymphadenopathy Respiratory exam: Present: normal lung sounds bilaterally. Absent: respiratory distress, wheezes, rales, rhonchi, stridor Cardiovascular Exam: Present: regular rate, normal rhythm, normal heart sounds. Absent: systolic murmur, diastolic murmur, rubs, gallop, clicks GI/Abdominal exam: Present: soft, normal bowel sounds. Absent: distended, tenderness, guarding, rebound, rigid Extremities exam: Present: normal inspection, full ROM, tenderness (Foot tenderness to palpation), normal capillary refill. Absent: pedal edema, joint swelling, calf tenderness Back exam: Present: normal inspection Neurological exam: Present: alert, oriented X3, CN II-XII intact Psychiatric exam: Present: normal affect, normal mood Skin exam: Present: warm, dry, intact, normal color. Absent: rash Course Vital Signs 05/21/23 05/21/23 15:30 17:48 Temperature 98.6 F Pulse Rate 41 L 77 Respiratory 18 18 Rate Blood Pressure 112/81 117/84 O2 Sat by Pulse 100 100 Oximetry - Reevaluation(s) Reevaluation #1: 05/21/23 23:31 Medical record is reviewed Reevaluation #2: 05/21/23 23:31 Patient symptoms are improved Reevaluation #3: 05/21/23 23:31 patient informed results and questions answered Reevaluation #4: 05/21/23 23:31 Was pt. sent in by a medical professional or institution? @ -no Did you speak to anyone other than the patient for history? @ -no Did you review nursing and triage notes? @ -agree Were old charts reviewed? @ -yes Differential Diagnosis? @ -prior EKG interpreted by me (3pts min.)? @ -no X-rays interpreted by me (1pt min.)? @ -yes CT interpreted by me (1pt min.)? @ -no U/S interpreted by me (1pt. min.)? @ -no What testing was considered but not performed? (CT, X-rays, U/S, labs)? Why? @ -no What meds were considered but not given? Why? @ -no Did you discuss the management of the patient with other professionals? @ -no Did you reconcile home meds? @ -no Was smoking cessation discussed for >3mins.? @ -no Was critical care preformed (if so, how long)? @ -no Were there social determinants of health that impacted care today? How? (Homelessness, low income, unemployed, alcoholism, drug addiction, transportation, low edu. Level, literacy, decrease access to med. care, fpc, rehab)? @ -no Was there de-escalation of care discussed even if they declined? (Discuss DNR or withdrawal of care, Hospice)? @ -no What co-morbidities impacted this encounter? (DM, HTN, Smoking, COPD, CAD, Cancer, CVA, Hep., AIDS, mental health diagnosis, sleep apnea, morbid obesity)? @ -none Was patient admitted / discharged? @ -37 female to the emergency department for evaluation of foot pain. Patient feels well currently here in the ER, patient states her pain has improved while waiting. Patient foot pain is well-controlled and patient can be discharged home Discharge Undiagnosed new problem with uncertain prognosis? @ -no Drug Therapy requiring intensive monitoring for toxicity (Heparin, Nitro, Insulin, Cardizem)? @ -no Were any procedures done? @ -no Diagnosis/symptom? @ -Right foot pain Acute, or Chronic, or Acute on Chronic? @ -acute Uncomplicated (without systemic symptoms) or Complicated (systemic symptoms)? @ -complicated Side effects of treatment? @ -no Exacerbation, Progression, or Severe Exacerbation] @ -no Poses a threat to life or bodily function? @ -no Medical Decision Making - Medical Decision Making 37 female to the emergency department for evaluation of foot pain. Patient feels well currently here in the ER, patient states her pain has improved while waiting. Patient foot pain is well-controlled and patient can be discharged home - Radiology Data Radiology results: report reviewed (X-ray foot is negative for acute disease), image reviewed Disposition Clinical Impression: Right foot pain Disposition: HOME SELF-CARE Condition: Good Instructions (If sedation given, give patient instructions): Foot Sprain (ED), Leg Pain (ED) Is patient prescribed a controlled substance at d/c from ED?: No Referrals: Terrell Duarte MD [Primary Care Provider] - 1-2 days Time of Disposition: 18:10
== END 2023-05-21 18:34 | disposition home or self-care (01) ==
LOC: EC 15:00
DX: M79.671 Pain in right foot (principal)
CPT/HCPCS: 99283

== ENCOUNTER 2023-06-14 12:34 | Emergency (ER) | payer OTHER ==
--- NOTE | 2023-06-14 13:42 | US ---
EXAMINATION TYPE: US venous doppler duplex LE LT DATE OF EXAM: 06/14/2023 12:58 PM COMPARISON: NONE CLINICAL INDICATION: Female, 37 years old with history of parestnesias r/o DVT; Paresthesia in left l eg x 1 day. No hx of DVT. SIDE PERFORMED: Left TECHNIQUE: The lower extremity deep venous system is examined utilizing real time linear array sonog patrick with graded compression, doppler sonography and color-flow sonography. VESSELS IMAGED: Common Femoral Vein Deep Femoral Vein Greater Saphenous Vein * Femoral Vein Popliteal Vein Small Saphenous Vein * Proximal Calf Veins (* superficial vessels) Left Leg: No evidence of DVT. IMPRESSION: No evidence for DVT at this time.
--- NOTE | 2023-06-14 14:03 | ED ---
Extremity Problem HPI - General Chief complaint: Extremity Problem,Nontraumatic Stated complaint: Left leg numbness Time Seen by Provider: 06/14/23 12:49 Source: patient Mode of arrival: ambulatory Limitations: no limitations - History of Present Illness Initial comments: 37-year-old female presents to the ED with a chief complaint of paresthesias. Patient states one day history of numbness/"cold" feeling of her entire left lower leg. States that she was at rest on onset. Denies saddle anesthesia, incontinence, back pain. No known alleviating or aggravating factors. Denies any recent injury or trauma. Denies weakness of the left lower leg. No other complaints. - Related Data Home Medications Medication Instructions Recorded Confirmed Pnv No.95/Ferrous Fum/Folic AC 1 each PO DAILY 11/21/18 11/21/18 [ Multivitamin Tablet] Previous Rx's Medication Instructions Recorded Ibuprofen [Motrin] 600 mg PO Q6HR PRN #30 tab 11/23/18 Cyclobenzaprine [Flexeril] 5 mg PO TID PRN #15 tablet 04/30/21 Vit E Acet/Wheat Germ/Aloe V 1 applic TOPICAL BID #60 gm 03/21/23 [Vitamin E Ointment] Allergies Allergy/AdvReac Type Severity Reaction Status Date / Time No Known Allergies Allergy Verified 06/14/23 12:38 Review of Systems ROS Statement: Those systems with pertinent positive or pertinent negative responses have been documented in the HPI. ROS Other: All systems not noted in ROS Statement are negative. Past Medical History Past Medical History: No Reported History Additional Past Medical History / Comment(s): OB history: She's had 3 previous vaginal deliveries. This is her fourth and she had care with nc since 10 weeks. O+, abs neg, Rub Imm, RPR NR, HEp B neg, HIV NR. normal 1hr GTT. GBS neg. History of Any Multi-Drug Resistant Organisms: None Reported Past Surgical History: No Surgical Hx Reported Past Anesthesia/Blood Transfusion Reactions: No Reported Reaction Past Psychological History: No Psychological Hx Reported Smoking Status: Never smoker Past Alcohol Use History: None Reported Past Drug Use History: None Reported - Past Family History Father Family Medical History: No Reported History General Exam Limitations: no limitations General appearance: alert, in no apparent distress Eye exam: Present: normal appearance Respiratory exam: Present: normal lung sounds bilaterally Cardiovascular Exam: Present: regular rate, normal rhythm GI/Abdominal exam: Present: soft Extremities exam: Present: normal inspection, other (Strength and sensation equal and symmetric in bilateral lower extremities. DP/PT pulses 2+.) Neurological exam: Present: alert, oriented X3 Skin exam: Present: warm, dry Course Vital Signs 06/14/23 12:36 Temperature 98.4 F Pulse Rate 85 Respiratory 20 Rate Blood Pressure 115/75 O2 Sat by Pulse 99 Oximetry Medical Decision Making - Medical Decision Making Was pt. sent in by a medical professional or institution (, PA, JEWEL STRINGER, urgent care, hospital, or [place] [facility]...) When possible be specific @ -No Did you speak to anyone other than the patient for history (EMS, parent, family, police, friend...)? What history was obtained from this source @ -No Did you review nursing and triage notes (agree or disagree)? Why? @ -I reviewed and agree with nursing and triage notes Were old charts reviewed (outside hosp., previous admission, EMS record, old EKG, old radiological studies, urgent care reports/EKG's, [place] [facility] facility records)? Report findings @ -No old charts were reviewed Differential Diagnosis (chest pain, altered mental status, abdominal pain women, abdominal pain men, vaginal bleeding, weakness, fever, dyspnea, syncope, headache, dizziness, GI bleed, back pain, seizure, CVA, palpatations, mental health, musculoskeletal)? @ -Differential Musculoskeletal Muscular strain, contusion, ligament sprain, fracture, arthritis, septic arthritis, bursitis, cellulitis, muscle spasm, nerve compression, DVT, arterial occlusion, herpes zoster, electrolyte abnormality, tumor.... This is not meant to be in all inclusive list EKG interpreted by me (3pts min.). @ -None X-rays interpreted by me (1pt min.). @ -None done CT interpreted by me (1pt min.). @ -None done U/S interpreted by me (1pt. min.). @ -Ultrasound showed no evidence of DVT or other acute process. What testing was considered but not performed or refused? (CT, X-rays, U/S, labs)? Why? @ -None What meds were considered but not given or refused? Why? @ -None Did you discuss the management of the patient with other professionals (irina rae i.e., Dr., PA, JEWEL STRINGER, lab, RT, psych nurse, social studies teacher, linux system administrator, teacher, radio officer, pillowcase cutter)? Give summary @ -No Was smoking cessation discussed for >3mins.? @ -No Was critical care preformed (if so, how long)? @ -No Were there social determinants of health that impacted care today? How? (Homelessness, low income, unemployed, alcoholism, drug addiction, transportation, low edu. Level, literacy, decrease access to med. care, [facility]ci, rehab)? @ -No Was there de-escalation of care discussed even if they declined (Discuss DNR or withdrawal of care, Hospice)? DNR status @ -No What co-morbidities impacted this encounter? (DM, HTN, Smoking, COPD, CAD, Cancer, CVA, ARF, Chemo, Hep., AIDS, mental health diagnosis, sleep apnea, morbid obesity)? @ -None Was patient admitted / discharged? Hospital course, mention meds given and route, prescriptions, significant lab abnormalities, going to OR and other pertinent info. @ -Discharged. Ultrasound showed no evidence of acute process. At this time, denies weakness and no weakness on exam. No back pain, saddle anesthesia, or incontinence. Patient will be discharged home and advised to follow up with PCP. Discharged home in stable condition. Discussed return precautions with patient who verbalizes agreement. Undiagnosed new problem with uncertain prognosis? @ -No Drug Therapy requiring intensive monitoring for toxicity (Heparin, Nitro, Insulin, Cardizem)? @ -No Were any procedures done? @ -No Diagnosis/symptom? @ -Paresthesias Acute, or Chronic, or Acute on Chronic? @ -Acute Uncomplicated (without systemic symptoms) or Complicated (systemic symptoms)? @ -Uncomplicated Side effects of treatment? @ -No Exacerbation, Progression, or Severe Exacerbation? @ -No Poses a threat to life or bodily function? How? (Chest pain, [place], [place], pneumonia, PE, COPD, DKA, ARF, appy, cholecystitis, CVA, Diverticulitis, Homicidal, Suicidal, threat to staff... and all critical care pts) @ -No Disposition Clinical Impression: Paresthesia Disposition: HOME SELF-CARE Condition: Good Instructions (If sedation given, give patient instructions): Paresthesia (ED) Additional Instructions: Please return to the Emergency Department if symptoms worsen or any other concerns. Is patient prescribed a controlled substance at d/c from ED?: No Referrals: Terrell Duarte MD [Primary Care Provider] - 1-2 days Time of Disposition: 14:06
[2023-06-14 14:17] VITALS: BP 120/68; PULSE 80; RESP 16; TEMP 98.2
== END 2023-06-14 14:17 | disposition home or self-care (01) ==
LOC: EC 12:34
DX: R20.2 Paresthesia of skin (principal)
CPT/HCPCS: 99284

== ENCOUNTER 2023-06-24 22:57 | Emergency (ER) | payer OTHER ==
[2023-06-24 23:12] VITALS: RESP 18
--- NOTE | 2023-06-25 00:47 | ED ---
General Adult HPI - General Chief complaint: Extremity Problem,Nontraumatic Stated complaint: Numbness Time Seen by Provider: 06/24/23 23:52 Source: patient, RN notes reviewed Mode of arrival: ambulatory Limitations: no limitations - History of Present Illness Initial comments: 37-year-old female with no significant past medical history presents to the emergency department with a chief complaint of right arm cramping. Patient reports right arm and left leg cramping intermittently for approximately 10 days. She was seen and evaluated here on 06/14/2023 where she had a ultrasound of her leg which was unremarkable. She reports no resolution of symptoms. Denies any injury or trauma. She denies any fever, chills, saddle paresthesia, loss of bowel or bladder function. She believes that her symptoms may be related to her IUD which was placed [address] Buenrostro. Denies any fever, chills, dysuria, hematuria, vaginal bleeding, vaginal cramping. - Related Data Home Medications Medication Instructions Recorded Confirmed Pnv No.95/Ferrous Fum/Folic AC 1 each PO DAILY 11/21/18 11/21/18 [ Multivitamin Tablet] Previous Rx's Medication Instructions Recorded Ibuprofen [Motrin] 600 mg PO Q6HR PRN #30 tab 11/23/18 Cyclobenzaprine [Flexeril] 5 mg PO TID PRN #15 tablet 04/30/21 Vit E Acet/Wheat Germ/Aloe V 1 applic TOPICAL BID #60 gm 03/21/23 [Vitamin E Ointment] Allergies Allergy/AdvReac Type Severity Reaction Status Date / Time No Known Allergies Allergy Verified 06/24/23 23:12 Review of Systems ROS Statement: Those systems with pertinent positive or pertinent negative responses have been documented in the HPI. ROS Other: All systems not noted in ROS Statement are negative. Past Medical History Past Medical History: No Reported History Additional Past Medical History / Comment(s): OB history: She's had 3 previous vaginal deliveries. This is her fourth and she had care with me since 10 weeks. O+, abs neg, Rub Imm, RPR NR, HEp B neg, HIV NR. normal 1hr GTT. GBS neg. History of Any Multi-Drug Resistant Organisms: None Reported Past Surgical History: No Surgical Hx Reported Past Anesthesia/Blood Transfusion Reactions: No Reported Reaction Past Psychological History: No Psychological Hx Reported Smoking Status: Never smoker Past Alcohol Use History: None Reported Past Drug Use History: None Reported - Past Family History Father Family Medical History: No Reported History General Exam - General Exam Comments Initial Comments: General: Alert, in no acute distress Head: atraumatic normocephalic. Eyes PERRL, EOMI intact, mucous membranes moist Respiratory: Lungs clear to auscultation bilaterally Cardiovascular: Heart rate regular rate and rhythm Abdominal: Soft without guarding or rebound Extremities: Normal inspection with full range of motion and normal capillary refill Neuroogic: alert and oriented 3, CN II-XII intact, able to ambulate with steady gait Skin: warm dry and intact with normal color Limitations: no limitations Course Vital Signs 06/24/23 23:10 Temperature 99.2 F Pulse Rate 71 Respiratory 18 Rate Blood Pressure 102/67 O2 Sat by Pulse 100 Oximetry Medical Decision Making - Medical Decision Making Was pt. sent in by a medical professional or institution (, PA, DIRECTOR OF CATERING, urgent care, hospital, or senior living...) When possible be specific @ -[No] Did you speak to anyone other than the patient for history (EMS, parent, family, police, friend...)? What history was obtained from this source @ -[No] Did you review nursing and triage notes (agree or disagree)? Why? @ -[I reviewed and agree with nursing and triage notes] Were old charts reviewed (outside hosp., previous admission, EMS record, old EKG, old radiological studies, urgent care reports/EKG's, senior living records)? Report findings @ -[No old charts were reviewed] Differential Diagnosis (chest pain, altered mental status, abdominal pain women, abdominal pain men, vaginal bleeding, weakness, fever, dyspnea, syncope, headache, dizziness, GI bleed, back pain, seizure, CVA, palpatations, mental health, musculoskeletal)? @ -[not applicable] EKG interpreted by me (3pts min.). @ -[As above] X-rays interpreted by me (1pt min.). @ -[None done] CT interpreted by me (1pt min.). @ -[None done] U/S interpreted by me (1pt. min.). @ -[None done] What testing was considered but not performed or refused? (CT, X-rays, U/S, labs)? Why? @ -[None] What meds were considered but not given or refused? Why? @ -[None] Did you discuss the management of the patient with other professionals (professionals i.e. , PA, DIRECTOR OF CATERING, lab, RT, psych nurse, social welfare clerk, wage and hour investigator, teacher, chief information security officer, counseling case manager)? Give summary @ -[No] Was smoking cessation discussed for >3mins.? @ -[No] Was critical care preformed (if so, how long)? @ -[No] Were there social determinants of health that impacted care today? How? (Homelessness, low income, unemployed, alcoholism, drug addiction, transportation, low edu. Level, literacy, decrease access to med. care, correction, rehab)? @ -[No] Was there de-escalation of care discussed even if they declined (Discuss DNR or withdrawal of care, Hospice)? DNR status @ -[No] What co-morbidities impacted this encounter? (DM, HTN, Smoking, COPD, CAD, Cancer, CVA, ARF, Chemo, Hep., AIDS, mental health diagnosis, sleep apnea, morbid obesity)? @ -[None] Was patient admitted / discharged? Hospital course, mention meds given and route, prescriptions, significant lab abnormalities, going to OR and other pertinent info. @ -Discharged. This is a pleasant 37-year-old female who presents to the emergency department with chief complaint of extremity cramping. Patient had a thorough history and physical exam performed while in the ED. Physical exam essentially unremarkable. Heart rate regular rate and rhythm. Patient able to ambulate and move all extremities freely. Patient had electrolyte panel drawn which is essentially unremarkable I discussed the results in detail the patient verbalized understanding all questions were addressed. She was discharged in stable condition. Recommend close follow-up with PCP in 1-2 days. Case discussed with ALIN Conklin who agrees with plan of care Undiagnosed new problem with uncertain prognosis? @ -[No] Drug Therapy requiring intensive monitoring for toxicity (Heparin, Nitro, I nsulin, Cardizem)? @ -[No] Were any procedures done? @ -[No] Diagnosis/symptom? @ -Extremity Numbness Acute, or Chronic, or Acute on Chronic? @ -Acute Uncomplicated (without systemic symptoms) or Complicated (systemic symptoms)? @ - Uncomplicated Side effects of treatment? @ -[No] Exacerbation, Progression, or Severe Exacerbation? @ -[No] Poses a threat to life or bodily function? How? (Chest pain, [place], [place], pneumonia, PE, COPD, DKA, ARF, appy, cholecystitis, CVA, Diverticulitis, Homicidal, Suicidal, threat to staff... and all critical care pts) @ -Low likelihood - Lab Data Result diagrams: 06/25/23 01:29 Lab Results 06/25/23 Range/Units 01:29 Sodium 137 (137-145) mmol/L Potassium 4.2 (3.5-5.1) mmol/L Chloride 105 (98-107) mmol/L Carbon Dioxide 24 (22-30) mmol/L Anion Gap 8 mmol/L BUN 12 (7-17) mg/dL Creatinine 0.76 (0.52-1.04) mg/dL Est GFR (CKD-EPI)AfAm >90 (>60 ml/min/1.73 sqM) Est GFR (CKD-EPI)NonAf >90 (>60 ml/min/1.73 sqM) Glucose 99 (74-99) mg/dL Calcium 8.9 (8.4-10.2) mg/dL Total Bilirubin 0.3 (0.2-1.3) mg/dL AST 24 (14-36) U/L ALT 33 (4-34) U/L Alkaline Phosphatase 42 (38-126) U/L Total Protein 7.3 (6.3-8.2) g/dL Albumin 4.0 (3.5-5.0) g/dL Disposition Clinical Impression: Paresthesia Disposition: HOME SELF-CARE Condition: Stable Additional Instructions: Please monitor symptoms closely. Please return to the nearest emergency department symptoms worsen or persist Is patient prescribed a controlled substance at d/c from ED?: No Referrals: Terrell Duarte MD [Primary Care Provider] - 1-2 days Time of Disposition: 02:06
[2023-06-25 01:49] LABS: ALT 33 U/L (4-34); AST 24 U/L (14-36); African American GFR (CKD) >90 (>60 ml/min/1.73 sqM); Alkaline Phosphatase 42 U/L (38-126); Anion Gap 8 mmol/L; Blood Urea Nitrogen 12 mg/dL (7-17); Calcium 8.9 mg/dL (8.4-10.2); Carbon Dioxide 24 mmol/L (22-30); Chloride 105 mmol/L (98-107); Glucose 99 mg/dL (74-99); Non-African American GFR(CKD) >90 (>60 ml/min/1.73 sqM); Potassium 4.2 mmol/L (3.5-5.1); Sodium 137 mmol/L (137-145); Total Bilirubin 0.3 mg/dL (0.2-1.3); Total Protein 7.3 g/dL (6.3-8.2)
[2023-06-25 02:46] VITALS: BP 113/76; PULSE 82; TEMP 97.8
== END 2023-06-25 02:45 | disposition home or self-care (01) ==
LOC: EC 22:57
DX: R20.2 Paresthesia of skin (principal)
CPT/HCPCS: 36415; 80053; 99284

== ENCOUNTER 2023-08-30 19:00 | Emergency (ER) | payer OTHER ==
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
[2023-08-30 21:40] VITALS: BP 99/79; PULSE 68; RESP 16; TEMP 97.6
== END 2023-08-30 21:11 | disposition home or self-care (01) ==
LOC: EC 19:00
DX: S00.03XA Contusion of scalp, initial encounter (principal); V43.62XA Car passenger injured in collision with other type car in traffic accident, initial encounter; Y92.410 Unspecified street and highway as the place of occurrence of the external cause
CPT/HCPCS: 70450; 72125; 99284

== ENCOUNTER → 2024-04-29 | Outpatient (CLI) | payer MEDICAID ==
[2024-04-29 14:09] LABS: Creatinine,Urine Random 55.5 mg/dL; Protein/Creatinine Ratio,Urine 0.18
[2024-04-29 18:15] LABS: Basophils # (A) 0.02 X 10*3/uL (0.00-0.10); Basophils % (A) 0.6 %; Eosinophils # (A) 0.07 X 10*3/uL (0.04-0.35); Eosinophils % (A) 2.2 %; HGB 10.4 g/dL (12.0-15.0); Lymphocytes # (A) 1.14 X 10*3/uL (0.90-5.00); Lymphocytes % (A) 35.8 %; MCH 29.4 pg (27.0-32.0); MCHC 31.5 g/dL (32.0-37.0); MCV 93.2 FL (80.0-97.0); Mean Platelet Volume 11.4 FL (9.5-12.2); Monocytes % (A) 9.4 %; NRBC Per 100 WBC 0 X 10*3/uL (0.00-0.01); Neutrophils # (A) 1.64 X 10*3/uL (1.80-7.70); Neutrophils % (A) 51.7 %; Platelet Count 234 X 10*3/uL (140-440); RBC 3.54 X 10*6/uL (4.10-5.20); WBC 3.18 X 10*3/uL (4.50-10.00)
[2024-04-29 19:34] LABS: Erythrocyte Sedimentation Rate 9 mm/Hr (0-20)
[2024-04-29 20:47] LABS: Appearance,Urine Clear (Clear); Bilirubin,Urine Negative (Negative); Blood,Urine Negative (Negative); Color,Urine Yellow (Yellow); Ketones,Urine Negative (Negative); Nitrite,Urine Negative (Negative); Specific Gravity,Urine 1.007 (1.001-1.030); Urobilinogen,Urine 0.2 E.U./DL
[2024-04-29 21:26] LABS: Microalbumin Creatinine Ratio <21 mg/g Cr (0-30); Urine Creatinine 56.7 mg/dL (28.0-217.0)
[2024-04-29 23:01] LABS: % Iron Saturation 9.24 (12.00-45.00); ALT 8 U/L (8-44); AST 17 U/L (13-35); Albumin/Globulin Ratio 1.43 Ratio (1.60-3.17); Alkaline Phosphatase 46 U/L (41-126); BUN/Creat Ratio 10.71 Ratio (12.00-20.00); Blood Urea Nitrogen 7.5 mg/dL (9.0-27.0); Carbon Dioxide 23.6 mmol/L (21.6-31.8); Chloride 106 mmol/L (96-109); Chol/HDL Ratio 3.66 Ratio; Globulin 2.8 g/dL (1.6-3.3); Glucose 87 mg/dL (70-110); Iron 34 UG/DL (50-170); LDL Cholesterol,Calculated 113.2 mg/dL (0.0-131.0); Potassium 4.4 mmol/L (3.5-5.5); Sodium 139 mmol/L (135-145); Total Bilirubin 0.2 mg/dL (0.3-1.2); Total Iron Binding Capacity 368 UG/DL (228-460); Total Protein 6.8 g/dL (6.2-8.2); VLDL Calculation 10.28 mg/dL (5.00-40.00)
[2024-04-30 00:07] LABS: Creatine Kinase 64 U/L (26-186); Ferritin 16.5 ng/mL (10.0-291.0); Magnesium 1.9 mg/dL (1.5-2.4); Phosphorus 3.8 mg/dL (2.4-5.1); T4, Free (Free Thyroxine) 1.31 ng/dL (0.80-1.80)
== END | disposition home or self-care (01) ==
LOC: LABWHC1 12:33
PROVIDERS: ATTEND Internal Medicine
DX: D64.9 Anemia, unspecified (principal); E78.6 Lipoprotein deficiency; R80.9 Proteinuria, unspecified; R73.9 Hyperglycemia, unspecified
CPT/HCPCS: 36415; 80053; 80061; 81003; 82043; 82306; 82550; 82570; 82728; 83036; 83540; 83550; 83735; 84100; 84156; 84439; 84443; 85025; 85652; 86140; 86376; 86800

== ENCOUNTER → 2025-02-23 | Outpatient (CLI) | payer OTHER ==
[2025-02-23 18:09] LABS: Appearance,Urine Clear (Clear); Basophils # (A) 0.05 X 10*3/uL (0.00-0.10); Basophils % (A) 1.2 %; Bilirubin,Urine Negative (Negative); Blood,Urine Moderate (Negative); Color,Urine Yellow (Yellow); Eosinophils # (A) 0.09 X 10*3/uL (0.04-0.35); Eosinophils % (A) 2.2 %; HCT 36.8 % (37.2-46.3); HGB 12.2 g/dL (12.0-15.0); Ketones,Urine Negative (Negative); Lymphocytes # (A) 1.65 X 10*3/uL (0.90-5.00); Lymphocytes % (A) 40.9 %; MCH 30.6 pg (27.0-32.0); MCHC 33.2 g/dL (32.0-37.0); MCV 92.2 FL (80.0-97.0); Monocytes % (A) 9.9 %; NRBC Per 100 WBC 0 X 10*3/uL (0.00-0.01); Neutrophils # (A) 1.83 X 10*3/uL (1.80-7.70); Neutrophils % (A) 45.6 %; Nitrite,Urine Negative (Negative); PH, Urine 7.5; Platelet Count 263 X 10*3/uL (140-440); RBC 3.99 X 10*6/uL (4.10-5.20); RDW 12.5 % (11.5-14.5); Specific Gravity,Urine 1.003 (1.001-1.030); Urobilinogen,Urine 0.2 E.U./DL; WBC 4.03 X 10*3/uL (4.50-10.00)
[2025-02-23 18:20] LABS: Microalbumin Creatinine Ratio <122 mg/g Cr (0-30); Urine Creatinine 9.8 mg/dL (28.0-217.0)
[2025-02-23 18:33] LABS: BUN/Creat Ratio 19.71 Ratio (12.00-20.00); Blood Urea Nitrogen 13.8 mg/dL (9.0-27.0); Calcium 9.3 mg/dL (8.7-10.3); Chloride 102 mmol/L (96-109); Ferritin 28.7 ng/mL (10.0-291.0); Glucose 93 mg/dL (70-110); Iron 93 UG/DL (50-170); Magnesium 1.8 mg/dL (1.5-2.4); Potassium 4.6 mmol/L (3.5-5.5); Sodium 138 mmol/L (135-145); T4, Free (Free Thyroxine) 1.06 ng/dL (0.80-1.80); Total Iron Binding Capacity 375 UG/DL (228-460)
[2025-02-23 19:21] LABS: Bacteria,Urine None Seen (None Seen)
[2025-02-23 23:04] LABS: Thyroid Peroxidase Antibodies 72.7 U/mL (0.0-33.0)
== END | disposition home or self-care (01) ==
LOC: LABWHC1 12:52
PROVIDERS: ATTEND Obstetrics & Gynecology
DX: E87.8 Other disorders of electrolyte and fluid balance, not elsewhere classified (principal); E03.9 Hypothyroidism, unspecified; D64.9 Anemia, unspecified; N39.0 Urinary tract infection, site not specified; D50.9 Iron deficiency anemia, unspecified
CPT/HCPCS: 36415; 80048; 81001; 82043; 82570; 82728; 83540; 83550; 83735; 84432; 84439; 84443; 85025; 86376; 86800; 87086